=== PATIENT | male | born 1965 | race Caucasian/White ===

== ENCOUNTER 2024-06-25 18:00 | Emergency (ER) | payer OTHER, MEDICARE, SELFPAY ==
[2024-06-25 18:42] VITALS: BP 162/87; PULSE 93; RESP 18; TEMP 36.8; O2SAT 97; BMI 33.1
[2024-06-25 18:47] VITALS: BP 154/102; PULSE 98; O2SAT 100
--- NOTE | 2024-06-25 18:47 | XRR_ITS ---
PROCEDURE INFORMATION: Exam: XR Right Knee Exam date and time: 06/25/2024 6:59 PM Age: 59 years old Clinical indication: Pain; Knee; Right; Prior surgery; Surgery date: 6+ months; Surgery type: 2 scopes TECHNIQUE: Imaging protocol: Radiologic exam of the right knee. Views: 3 views. COMPARISON: No relevant prior studies available. FINDINGS: Bones/joints: Osseous structures are intact. Negative for fracture. Mild tricompartmental DJD of the knee. Joint effusion present. Soft tissues: Normal. XR/XR knee RT 3V* [id number] IMPRESSION: Mild tricompartmental DJD of the knee with joint effusion.
--- NOTE | 2024-06-25 19:25 | ED_ITS ---
HPI - Extremity Problem General: Chief complaint: Extremity Injury, Lower Stated complaint: Right knee pain Time Seen by Provider: 06/25/24 19:07 History of Present Illness: 59-year-old male patient comes in today with complaints of decreased mobility to the right knee. Patient has known significant arthritis to the knee. Patient reports that he has had some increasing discomfort due to a recent move. Patient appears nontoxic. Patient appears no acute distress. Related Data Allergies Allergy/AdvReac Type Severity Reaction Status Date / Time acetaminophen [From Tylenol] Allergy ALGY-Anaphy Verified 06/25/24 18:56 laxis adhesive Allergy Unknown Verified 06/25/24 18:56 aspirin Allergy ALGY-Anaphy Verified 06/25/24 18:56 laxis Corticosteroids Allergy Unknown Verified 06/25/24 18:56 (Glucocorticoids) doxepin Allergy Unknown Verified 06/25/24 18:56 doxycycline Allergy ALGY-Rash Verified 06/25/24 18:56 duloxetine [From Cymbalta] Allergy Unknown Verified 06/25/24 18:56 hydrocodone [From Vicodin] Allergy Unknown Verified 06/25/24 18:56 influenza A (H1N1) virus Allergy Unknown Verified 06/25/24 18:56 vaccine m-camille-split 2008 [From influenza A (H1N1)] latex Allergy ALGY-Rash Verified 06/25/24 18:56 lidocaine Allergy ALGY-Anaphy Verified 06/25/24 18:56 laxis memantine [From Namenda] Allergy Unknown Verified 06/25/24 18:56 mirtazapine Allergy Unknown Verified 06/25/24 18:56 montelukast [From Singulair] Allergy Unknown Verified 06/25/24 18:56 mushroom Allergy ALGY-Anaphy Verified 06/25/24 18:56 laxis NSAIDS (Non-Steroidal Allergy ALGY-Anaphy Verified 06/25/24 18:56 Anti-Inflamma laxis onabotulinumtoxinA Allergy Unknown Verified 06/25/24 18:56 [From Botox] onion Allergy ALGY-Anaphy Verified 06/25/24 18:56 laxis oxycodone [From Percocet] Allergy Unknown Verified 06/25/24 18:56 Penicillins Allergy ALGY-Anaphy Verified 06/25/24 18:56 laxis pregabalin [From Lyrica] Allergy Unknown Verified 06/25/24 18:56 quetiapine [From Seroquel] Allergy ALGY-Anaphy Verified 06/25/24 18:56 laxis red (food color) Allergy Unknown Verified 06/25/24 18:56 shellfish derived Allergy ALGY-Anaphy Verified 06/25/24 18:56 laxis sulfanilamide Allergy Unknown Verified 06/25/24 18:56 tizanidine Allergy Unknown Verified 06/25/24 18:56 tomato Allergy ALGY-Anaphy Verified 06/25/24 18:56 laxis topiramate [From Topamax] Allergy Unknown Verified 06/25/24 18:56 zonisamide Allergy Unknown Verified 06/25/24 18:56 Review of Systems General: Reports: 10 or more systems reviewed and unremarkable except in HPI and below Musc: Reports: joint pain Physical Exam Const: COMMON NORMALS: alert HENMT: COMMON NORMALS: normocephalic HEAD & SCALP: normocephalic Neck/C-Spine: COMMON NORMALS: full ROM Resp: COMMON NORMALS: normal respiratory effort Cardio: COMMON NORMALS: regular rate RATE: regular rate Back/Pelvis: COMMON NORMALS: thoracic and lumbar spine normal to inspection Extremity: RIGHT LOWER EXTREMITY: Yes knee joint (Joint line tenderness, mild swelling, no redness) Right knee: Yes inspection Neuro: SENSORIUM/ORIENTATION: Yes alert Skin: COMMON NORMALS: turgor normal GENERAL SKIN EXAM: turgor normal Course Vital Signs: Vital signs: Vital Signs Temperature 98.3 F 06/25/24 18:42 Pulse Rate 93 06/25/24 18:42 Respiratory Rate 18 06/25/24 18:42 Blood Pressure 162/87 06/25/24 18:42 Pulse Oximetry 97 06/25/24 18:42 Oxygen Delivery Me thod Room Air 06/25/24 18:42 MDM - Extremity (Nontraumatic) Medical Decision Making 59-year-old male patient comes in today with complaints of right knee discomfort. On exam patient has some mild swelling and tenderness to palpation. Some decreased range of motion due to swelling. Distal pulses and sensation are intact. Differential diagnosis includes but not limited to osteoarthritis of the knee, tendinitis of the knee, knee strain, meniscal injury. X-ray of knee shows significant degenerative joint disease. Reviewed x-ray and exam with patient with recommendations for treatment. Patient is limited due to multiple allergens to drugs. I recommended patient try some fish oil or glucosamine/chondroitin to see if that would help with his discomfort along with ice and heat. Patient was given elastic bandage support. XR interpretation done by ED provider, pending radiology final review Discharge Plan Discharge Patient Disposition: Home Clinical Impression: Osteoarthritis of right knee Qualifiers: Osteoarthritis type: unspecified Qualified Code(s): M17.11 - Unilateral primary osteoarthritis, right knee Condition: Stable Discharge Orders: Discharge ED (Routine); Ordered 06/25/24 Ordered By: Lalito Saravia Discharge Diet: Usual diet Discharge Activity: Increase activity as tolerated Patient Instructions: Osteoarthritis (ED) Activity Restrictions/Additional Instructions: Use ice and heat to help with pain. Use an elastic bandage or compression sleeve for comfort. You may try fish oil and glucosamine/chondroitin supplementation for arthritic pain. Follow-up with primary care for further instructions. Return to ED for new concerns. 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
[2024-06-25 20:08] VITALS: BP 142/89; PULSE 104; O2SAT 91
== END 2024-06-25 20:00 | disposition home or self-care (01) ==
PROVIDERS: Emergency Provider Nurse Practitioner Family
DX: M17.11 Unilateral primary osteoarthritis, right knee (principal)
CPT/HCPCS: 73562; 99283

== ENCOUNTER 2024-08-22 02:59 | Emergency (ER) | payer OTHER, MEDICARE, SELFPAY ==
[2024-08-22 03:13] VITALS: BP 158/84; PULSE 89; RESP 16; TEMP 36.5; O2SAT 95; BMI 32.3
--- NOTE | 2024-08-22 03:17 | XRR_ITS ---
PROCEDURE INFORMATION: Exam: XR Right Hip Exam date and time: 08/22/2024 3:39 AM Age: 59 years old Clinical indication: Right hip; Patient HX: C/O RT hip pain. No injury. TECHNIQUE: Imaging protocol: Radiologic exam of the right hip. Views: 1 view hip with pelvis when performed. COMPARISON: No relevant prior studies available. FINDINGS: Bones/joints: There is no acute fracture or dislocation. If symptoms persist, follow-up imaging in several days may be useful to exclude an occult or subtle fracture. Mild arthritic changes involve the right hip age. Soft tissues: No significant acute finding. XR/XR hip RT 2-3V wo/w pel* [id number] IMPRESSION: No acute fracture or dislocation.
--- NOTE | 2024-08-22 03:37 | W.ED.EXTPRO ---
HPI - Extremity Problem General: Chief complaint: Extremity Injury, Lower Stated complaint: Hip Pain Time Seen by Provider: 08/22/24 03:08 Source: patient Mode of arrival: ambulatory Limitations: no limitations History of Present Illness: 59-year-old male who states he has a history of arthritis along with chronic joint pain states he is put on his shoes 3 hours ago and felt a pop in his right hip been having pain in the right hip since then he is able ambulate with his cane rates his pain a 6 out of 10 currently is worse with movement Associated symptoms: Deny chest pain, fever(s) or rash Related Data Allergies Allergy/AdvReac Type Severity Reaction Status Date / Time acetaminophen [From Tylenol] Allergy ALGY-Anaphy Verified 06/25/24 18:56 laxis adhesive Allergy Unknown Verified 06/25/24 18:56 aspirin Allergy ALGY-Anaphy Verified 06/25/24 18:56 laxis Corticosteroids Allergy Unknown Verified 06/25/24 18:56 (Glucocorticoids) doxepin Allergy Unknown Verified 06/25/24 18:56 doxycycline Allergy ALGY-Rash Verified 06/25/24 18:56 duloxetine [From Cymbalta] Allergy Unknown Verified 06/25/24 18:56 hydrocodone [From Vicodin] Allergy Unknown Verified 06/25/24 18:56 influenza A (H1N1) virus Allergy Unknown Verified 06/25/24 18:56 vaccine m-camille-split 2008 [From influenza A (H1N1)] latex Allergy ALGY-Rash Verified 06/25/24 18:56 lidocaine Allergy ALGY-Anaphy Verified 06/25/24 18:56 laxis memantine [From Namenda] Allergy Unknown Verified 06/25/24 18:56 mirtazapine Allergy Unknown Verified 06/25/24 18:56 montelukast [From Singulair] Allergy Unknown Verified 06/25/24 18:56 mushroom Allergy ALGY-Anaphy Verified 06/25/24 18:56 laxis NSAIDS (Non-Steroidal Allergy ALGY-Anaphy Verified 06/25/24 18:56 Anti-Inflamma laxis onabotulinumtoxinA Allergy Unknown Verified 06/25/24 18:56 [From Botox] onion Allergy ALGY-Anaphy Verified 06/25/24 18:56 laxis oxycodone [From Percocet] Allergy Unknown Verified 06/25/24 18:56 Penicillins Allergy ALGY-Anaphy Verified 06/25/24 18:56 laxis pregabalin [From Lyrica] Allergy Unknown Verified 06/25/24 18:56 quetiapine [From Seroquel] Allergy ALGY-Anaphy Verified 06/25/24 18:56 laxis red (food color) Allergy Unknown Verified 06/25/24 18:56 shellfish derived Allergy ALGY-Anaphy Verified 06/25/24 18:56 laxis sulfanilamide Allergy Unknown Verified 06/25/24 18:56 tizanidine Allergy Unknown Verified 06/25/24 18:56 tomato Allergy ALGY-Anaphy Verified 06/25/24 18:56 laxis topiramate [From Topamax] Allergy Unknown Verified 06/25/24 18:56 zonisamide Allergy Unknown Verified 06/25/24 18:56 Review of Systems Const: Denies: fever(s), chills, body aches or change in appetite ENMT: Denies: throat pain or dental pain Card: Denies: chest pain Resp: Denies: dyspnea GI: Denies: abdominal pain, nausea, vomiting or diarrhea Musc: Reports: extremity pain; Denies: neck pain or back pain Skin/Breast: Denies: rash Neuro: Denies: headache(s) Physical Exam Const: COMMON NORMALS: no acute distress, patient oriented x3 and healthy appearing HENMT: COMMON NORMALS: normocephalic and atraumatic HEAD & SCALP: normocephalic and atraumatic Neck/C-Spine: COMMON NORMALS: full ROM and supple Chest: COMMONS NORMALS: normal inspection of the chest Resp: COMMON NORMALS: normal respiratory effort Cardio: COMMON NORMALS: regular rate RATE: regular rate Extremity: NARRATIVE EXTREMITY EXAM: Tenderness noted over right hip has some pain with range of motion he is able ambulate Neuro: COMMON NORMALS: patient oriented x3, moves all extremities and no focal motor deficits Psych: COMMON NORMALS: mental status grossly normal, Normal thought process present and cooperative THOUGHT PROCESS: Normal thought process present Skin: COMMON NORMALS: no rashes or lesions noted and no wounds GENERAL SKIN EXAM: no rashes or lesions noted Course Vital Signs: Vital signs: Vital Signs Temperature 97.7 F 08/22/24 03:13 Pulse Rate 89 08/22/24 03:13 Respiratory Rate 16 08/22/24 03:13 Blood Pressure 158/84 08/22/24 03:13 Pulse Oximetry 95 08/22/24 03:13 Oxygen Delivery Me thod Room Air 08/22/24 03:13 MDM - Extremity (Nontraumatic) Medical Decision Making Patient presents here with right hip pain x-ray shows no acute fracture he is able to ambulate he stable for discharge follow-up PCP return if worsening. Medical Records I reviewed the patient's medical records. XR interpretation done by ED provider, pending radiology final review ED provider radiology interpretation(s): xr hip: no acute fx Discharge Plan Discharge Patient Disposition: Home Clinical Impression: Acute right hip pain Condition: Stable Discharge Orders: Discharge ED (Routine); Ordered 08/22/24 Ordered By: Nino Rasheed Referrals: Ab Porras DO [Physician] - 4-7 days Discharge Diet: Advance as tolerated Discharge Activity: Resume usual activity Patient Instructions: Hip Pain (ED) Coding Level of Care Code ED Distilling Department Supervisor for Pierre Holley
[2024-08-22 04:04] VITALS: BP 156/78; PULSE 82; O2SAT 100
--- NOTE | 2024-08-23 08:49 | DCPLANNER ---
messaged ortho for er f/u
== END 2024-08-22 04:05 | disposition home or self-care (01) ==
PROVIDERS: Emergency Provider Emergency Medicine
DX: M25.551 Pain in right hip (principal)
CPT/HCPCS: 73502; 99283

== ENCOUNTER 2024-12-29 21:05 | Emergency (ER) | payer OTHER, MEDICARE, SELFPAY ==
--- NOTE | 2024-12-29 21:13 | ECG_ITS ---
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 Measurements Intervals [place] Rate: 106 P: 42 MI: 164 QRS: 1 QRSD: 94 T: 73 QT: 332 QTc: 441 Interpretive Statements SINUS TACHYCARDIA No previous ECG available for comparison Electronically Signed On 12-30-2024 17:34:42 CDT by Johann Celeste M.D. [id number]
[2024-12-29 21:17] VITALS: BP 140/74; PULSE 103; RESP 22; TEMP 37.1; O2SAT 98; BMI 32.3
--- NOTE | 2024-12-29 21:19 | XRR_ITS ---
PROCEDURE INFORMATION: Exam: XR Chest Exam date and time: 12/29/2024 9:39 PM Age: 59 years old Clinical indication: Shortness of breath TECHNIQUE: Imaging protocol: Radiologic exam of the chest. Views: 1 view. COMPARISON: No relevant prior studies available. FINDINGS: Lungs: Unremarkable. No consolidation. Pleural spaces: Unremarkable. No pleural effusion. No pneumothorax. Heart/Mediastinum: Unremarkable. No cardiomegaly. Bones/joints: Unremarkable. XR/XR chest 1V portable [id number] IMPRESSION: No acute findings.
--- NOTE | 2024-12-29 21:22 | ED_ITS ---
HPI - SOB/Dyspnea 2 General: Chief Complaint: Shortness of Breath/Dyspnea Stated Complaint: Coughing Can't breath Nausa,body ache Time Seen by Provider: 12/29/24 21:14 History of Present Illness: HPI Narrative: 59-year-old man with a history of asthma and apparently a chronic cough. He says he been coughing since October night. Almost 2 months ago. He feels somewhat short of breath. He says he has asthma. On exam he has a very mild wheeze. No chest pain. No nausea or vomiting. No fevers. Related Data Previous Rx's ?Medication ?Instructions ?Recorded benzonatate 200 mg capsule 200 mg PO TID PRN cough #30 caps 12/29/24 dexamethasone 6 mg tablet 6 mg PO DAILY 5 days #5 tabs 12/29/24 Allergies Allergy/AdvReac Type Severity Reaction Status Date / Time acetaminophen (From Tylenol) Allergy ALGY-Anaphy Verified 06/25/24 18:56 laxis adhesive Allergy Unknown Verified 06/25/24 18:56 aspirin Allergy ALGY-Anaphy Verified 06/25/24 18:56 laxis Corticosteroids Allergy Unknown Verified 06/25/24 18:56 (Glucocorticoids) doxepin Allergy Unknown Verified 06/25/24 18:56 doxycycline Allergy ALGY-Rash Verified 06/25/24 18:56 duloxetine (From Cymbalta) Allergy Unknown Verified 06/25/24 18:56 hydrocodone (From Vicodin) Allergy Unknown Verified 06/25/24 18:56 influenza A (H1N1) virus Allergy Unknown Verified 06/25/24 18:56 vaccine m-camille-split 2008 (From influenza A (H1N1)) latex Allergy ALGY-Rash Verified 06/25/24 18:56 lidocaine Allergy ALGY-Anaphy Verified 06/25/24 18:56 laxis memantine (From Namenda) Allergy Unknown Verified 06/25/24 18:56 mirtazapine Allergy Unknown Verified 06/25/24 18:56 montelukast (From Singulair) Allergy Unknown Verified 06/25/24 18:56 mushroom Allergy ALGY-Anaphy Verified 06/25/24 18:56 laxis NSAIDS (Non-Steroidal Allergy ALGY-Anaphy Verified 06/25/24 18:56 Anti-Inflamma laxis onabotulinumtoxinA (From Allergy Unknown Verified 06/25/24 18:56 Botox) onion Allergy ALGY-Anaphy Verified 06/25/24 18:56 laxis oxycodone (From Percocet) Allergy Unknown Verified 06/25/24 18:56 Penicillins Allergy ALGY-Anaphy Verified 06/25/24 18:56 laxis pregabalin (From Lyrica) Allergy Unknown Verified 06/25/24 18:56 quetiapine (From Seroquel) Allergy ALGY-Anaphy Verified 06/25/24 18:56 laxis red (food color) Allergy Unknown Verified 06/25/24 18:56 shellfish derived Allergy ALGY-Anaphy Verified 06/25/24 18:56 laxis sulfanilamide Allergy Unknown Verified 06/25/24 18:56 tizanidine Allergy Unknown Verified 06/25/24 18:56 tomato Allergy ALGY-Anaphy Verified 06/25/24 18:56 laxis topiramate (From Topamax) Allergy Unknown Verified 06/25/24 18:56 zonisamide Allergy Unknown Verified 06/25/24 18:56 Review of Systems 2 Narrative: Constitutional symptoms: Negative except as documented in HPI. Skin symptoms: Negative except as documented in HPI. Eye symptoms: Negative except as documented in HPI. ENMT symptoms: Negative except as documented in HPI. Respiratory symptoms: Negative except as documented in HPI. Cardiovascular symptoms: Negative except as documented in HPI. Gastrointestinal symptoms: Negative except as documented in HPI. Genitourinary symptoms: Negative except as documented in HPI. Musculoskeletal symptoms: Negative except as documented in HPI. Neurologic symptoms: Negative except as documented in HPI. Psychiatric symptoms: Negative except as documented in HPI. Endocrine symptoms: Negative except as documented in HPI. Physical Exam 2 Narrative: EXAM NARRATIVE: General: Alert, no acute distress. Skin: Warm, dry. Head: Normocephalic, atraumatic. Neck: Supple, trachea midline. Eye: Extraocular movements are intact. Ears, nose, mouth and throat: Oral mucosa moist. Cardiovascular: Regular rate and rhythm, Normal peripheral perfusion. Respiratory: some expiratory wheeze, mild increased wob, breath sounds are equal, Symmetrical chest wall expansion. Gastrointestinal: Soft, Nontender, Non distended, Normal bowel sounds. Musculoskeletal: Normal ROM, no deformity. Neurological: Alert and oriented, No focal neurological deficit observed. Psychiatric: Cooperative, appropriate mood & affect. Course 2 Vital Signs: Vital signs: Vital Signs Temperature 98.7 F 12/29/24 21:17 Pulse Rate 101 H 12/29/24 22:30 Respiratory Rate 20 H 12/29/24 22:23 Blood Pressure 129/75 12/29/24 22:30 Pulse Oximetry 96 12/29/24 22:30 Oxygen Delivery Me thod Room Air 12/29/24 22:30 MDM - SOB/Dyspnea Medical Decision Making Differential diagnosis for patient with shortness of breath includes but is not limited to and based on the above HPI, review of systems and physical exam: Pneumonia. Bronchitis. Asthma or COPD with acute exacerbation. Acute coronary syndrome / ME. Pulmonary embolism. Anxiety. Congestive heart failure. Viral infections including influenza and Covid-19. Atrial fibrillation. Anxiety. Pleural effusion. Pneumothorax. Orders placed to evaluate differential diagnosis based on the above differential, HPI and physical exam EKG: Time 2112. Rate 106. Sinus tachycardia. No ST-T changes, no ectopy, normal AR & QRS intervals, This was reviewed and interpreted by myself the ER physician at 2114. Chest x-ray: No acute process. No infiltrate. No pneumothorax. This was reviewed and interpreted by myself the emergency room physician. I also reviewed the radiology report. Lab Review: Laboratory results were reviewed and interpreted by myself the emergency room physician. No leukocytosis. No anemia. No renal failure. Patient is influenza A positive. I reviewed the patient's medical record. Reexamination: Patient remained stable. No increased work of breathing. No altered mental status. No focal motor deficits. Assessment and plan: Influenza A Asthma exacerbation ? IV Decadron in the emergency room - Discharged home - Discussed plan with patient. Answered any questions. - Evaluation and treatment of this problem were appropriate in the emergency setting. Lab Data 12/29/24 22:10 12/29/24 22:10 Labs/Radiology: Radiology Impressions Chest X-Ray 12/29/24 21:19 IMPRESSION: No acute findings. Laboratory Results WBC 7.87 10^3/uL (3.29-11.43) 12/29/24 22:10 RBC 4.70 10^6/uL (3.85-5.65) 12/29/24 22:10 Hgb 13.80 g/dL (11.27-16.99) 12/29/24 22:10 Hct 39.7 % (37-53) 12/29/24 22:10 MCV 84.5 fl (82-101) 12/29/24 22:10 MCH 29.4 pg (27-33) 12/29/24 22:10 MCHC 34.8 g/dL (30-55) 12/29/24 22:10 RDW 12.0 % (12.1-15.1) L 12/29/24 22:10 Plt Count 286 10^3/cmm (157-399) 12/29/24 22:10 MPV 9.6 fL (7.4-10.4) 12/29/24 22:10 Neut % (Auto) 67.0 % 12/29/24 22:10 Lymph % (Auto) 12.3 % 12/29/24 22:10 Barren % (Auto) 16.4 % 12/29/24 22:10 Eos % (Auto) 3.2 % 12/29/24 22:10 Baso % (Auto) 0.8 % 12/29/24 22:10 Neut # (Auto) 5.28 10^3/uL (1.8-7.7) 12/29/24 22:10 Lymph # (Auto) 1.0 10^3/uL (0.8-4.8) 12/29/24 22:10 Barren # (Auto) 1.3 10^3/uL (0.2-0.9) H 12/29/24 22:10 Eos # (Auto) 0.3 10^3/uL (0.0-0.8) 12/29/24 22:10 Baso # (Auto) 0.1 10^3/uL (0.0-0.1) 12/29/24 22:10 Nucleated RBC % (auto) 0 % 12/29/24 22:10 Nucleated RBCs # 0.0 /100WBC 12/29/24 22:10 Sodium 139 mmol/L (136-145) 12/29/24 22:10 Potassium 4.3 mmol/L (3.5-5.1) 12/29/24 22:10 Chloride 103 mmol/L (98-107) 12/29/24 22:10 Carbon Dioxide 22 mmol/L (22-29) 12/29/24 22:10 Anion Gap 18.3 (5-19) 12/29/24 22:10 BUN 8 mg/dL (6-20) 12/29/24 22:10 Creatinine 1.2 mg/dL (0.7-1.2) 12/29/24 22:10 GFR Calculation 62.0 mL/min (90-130) L 12/29/24 22:10 Glucose 98 mg/dL (65-115) 12/29/24 22:10 Calculated Osmolality 286 mOsm/kg (285-295) 12/29/24 22:10 Calcium 8.9 mg/dL (8.5-10.5) 12/29/24 22:10 Total Bilirubin 0.7 mg/dL (0.15-1.2) 12/29/24 22:10 AST 33 U/L (0-40) 12/29/24 22:10 ALT 28 U/L (0-41) 12/29/24 22:10 Alkaline Phosphatase 95 U/L (40-130) 12/29/24 22:10 Total Protein 6.8 g/dL (6.6-8.7) 12/29/24 22:10 Albumin 4.3 g/dL (3.5-5.2) 12/29/24 22:10 Globulin 2.5 g/dL (1.3-4.6) 12/29/24 22:10 Influenza A (PCR) Positive (Negative) 12/29/24 21:39 Influenza Type B (PCR) Negative (Negative) 12/29/24 21:39 RSV (PCR) Negative (Negative) 12/29/24 21:39 SARS-CoV-2 (PCR) Negative (Negative) 12/29/24 21:39 All radiology interpretation(s) finalized by discharge Discharge Plan Discharge Patient Disposition: Home Clinical Impression: Influenza A, Asthma with exacerbation Condition: Stable Prescriptions: New benzonatate 200 mg capsule 200 mg PO TID PRN (Reason: cough) Qty: 30 0RF dexamethasone 6 mg tablet 6 mg PO DAILY 5 Days Qty: 5 0RF Discharge Orders: Discharge ED (Routine); Ordered 12/29/24 Ordered By: Tori Brown Discharge Diet: Usual diet Patient Instructions: Influenza (ED), Opioid Safety, Pain Management Activity Restrictions/Additional Instructions: Thank you for choosing [facility] for your healthcare needs today. Please realize this is an emergency room and that we are providing you with a medical screening exam and this may not be complete and all inclusive of all the testing and or work up that you may need to determine your ailment or severity of your illness. You have been screened and evaluated and felt safe for discharge. Health conditions do change or evolve sometimes and as such it is important that you follow up with your Primary Doctor to be re checked, 3-5 days is a general good time frame for follow up. You are always welcome to return to the ED for re assessment if your symptoms are worsening or you have new concerns Print Language: Honduran Coding Level of Care Code ED Trip Motor Operator for Pierre Holley
[2024-12-29] MEDS: guaiFENesin-codeine UDC 10 mL PO (21:59)
[2024-12-29] MEDS: dexamethasone 10 mg/mL INJ IVP (21:59)
[2024-12-29] MEDS: levofloxacin-dextrose 5 % 750 MG/150 ML PREMIX 100 MG IV (22:05)
[2024-12-29 22:08] VITALS: BP 123/78; PULSE 99; O2SAT 98
[2024-12-29 22:13] LABS: Basophils # 0.1 10^3/uL (0.0-0.1); Basophils % 0.8 %; Eosinophils # 0.3 10^3/uL (0.0-0.8); Eosinophils % 3.2 %; Hematocrit 39.7 % (37-53); Lymphocytes % 12.3 %; Mean Corpuscular HGB Conc 34.8 g/dL (30-55); Mean Corpuscular Hemoglobin 29.4 pg (27-33); Mean Corpuscular Volume 84.5 fl (82-101); Mean Platelet Volume 9.6 fL (7.4-10.4); Monocytes # 1.3 10^3/uL (0.2-0.9); Monocytes % 16.4 %; Neutrophils # 5.28 10^3/uL (1.8-7.7); Nucleated Red Blood Cells % 0 %; Platelet Count 286 10^3/cmm (157-399); White Blood Count 7.87 10^3/uL (3.29-11.43)
[2024-12-29] MEDS: albuterol 2.5 mg/3 mL Neb INHALATION (22:22)
[2024-12-29 22:23] VITALS: PULSE 95; RESP 20; O2SAT 95
[2024-12-29 22:24] LABS: Influenza A POSITIVE (Negative); Influenza B NEGATIVE (Negative); Respiratory Syncytial Virus Ce NEGATIVE (Negative); SARS-CoV-2 PCR NEGATIVE (Negative)
[2024-12-29 22:30] VITALS: BP 129/75; PULSE 101; O2SAT 96
[2024-12-29 22:39] LABS: Alanine Aminotransferase 28 U/L (0-41); Albumin Level 4.3 g/dL (3.5-5.2); Alkaline Phosphatase 95 U/L (40-130); Anion Gap 18.3 (5-19); Aspartate Amino Transferase 33 U/L (0-40); Blood Urea Nitrogen 8 mg/dL (6-20); Calcium 8.9 mg/dL (8.5-10.5); Carbon Dioxide 22 mmol/L (22-29); Chloride 103 mmol/L (98-107); Creatinine Clr Calc Pharmacy 72.9015; Globulin 2.5 g/dL (1.3-4.6); Glucose 98 mg/dL (65-115); Osmolality Calculated 286 mOsm/kg (285-295); Potassium 4.3 mmol/L (3.5-5.1); Sodium 139 mmol/L (136-145); Total Bilirubin 0.7 mg/dL (0.15-1.2); Total Protein 6.8 g/dL (6.6-8.7)
[2024-12-29 23:56] VITALS: BP 123/71; PULSE 94; O2SAT 96
== END 2024-12-29 23:57 | disposition home or self-care (01) ==
PROVIDERS: Emergency Provider Emergency Medicine
DX: J10.1 Influenza due to other identified influenza virus with other respiratory manifestations (principal); J45.901 Unspecified asthma with (acute) exacerbation; Z11.52 Encounter for screening for COVID-19
CPT/HCPCS: 71045; 80053; 85025; 87637; 93005; 94640; 96365; 96366; 96375; 99285; J1100; J1956; J7613; J9999

== ENCOUNTER 2025-01-10 15:16 | Emergency (ER) | payer OTHER, MEDICARE, SELFPAY ==
[2025-01-10] VITALS (9 sets, daily range): BP systolic 114–171; BP diastolic 70–94; PULSE 61–116; RESP 20–24; TEMP 36.8; O2SAT 89–96
--- NOTE | 2025-01-10 15:22 | XRR_ITS ---
PROCEDURE INFORMATION: Exam: XR Chest Exam date and time: 01/10/2025 3:28 PM Age: 59 years old Clinical indication: Cough and dyspnea and shortness of breath; Additional info: Dyspnea/cough TECHNIQUE: Imaging protocol: Radiologic exam of the chest. Views: 1 view. COMPARISON: CR (CHEST, ) 12/29/2024 9:39 PM FINDINGS: Lungs: No focal consolidation. Pleural spaces: No evidence of pneumothorax. No evidence of pleural effusion. Heart/Mediastinum: Cardiomediastinal silhouette is within normal limits. Bones/joints: No evidence of acute osseous abnormality. XR/XR chest 1V portable [id number] IMPRESSION: 1. No acute cardiopulmonary abnormality.
--- NOTE | 2025-01-10 15:24 | W.ED.SOB ---
HPI - SOB/Dyspnea General: Chief Complaint: Upper Respiratory Infection Stated Complaint: cough, SOB Time Seen by Provider: 01/10/25 15:21 History of Present Illness: HPI Narrative: 59-year-old male presents emergency room plaints of chronic cough he is tachypneic when he first arrived but maintaining his sats normally nonproductive cough. He was seen On 12/29 in the emergency room and had influenza at that time. Cough has been nonproductive. He does have a albuterol uses at home is some mild relief. Denies any hemoptysis chest discomfort with coughing and movement but otherwise not having any. No history of PE. Patient does smoke. Associated symptoms: Deny abdominal pain, chest pain or fever(s) Related Data Home Medications ?Medication ?Instructions ?Recorded ?Confirmed cromolyn 20 mg/2 mL solution for 2 ml inhalation QID 01/10/25 01/10/25 nebulization famotidine 20 mg tablet 20 mg PO DAILY 01/10/25 01/10/25 hydroxyzine pamoate 50 mg capsule 50 mg PO TID 01/10/25 01/10/25 Previous Rx's ?Medication ?Instructions ?Recorded albuterol sulfate 90 mcg/actuation 2 inh inhalation Q4H PRN shortness 01/10/25 aerosol inhaler of breath or wheezing #18 grams tiotropium bromide 1.25 2 inh inhalation DAILY #4 grams 01/10/25 mcg/actuation mist for inhalation (Spiriva Respimat) Allergies Allergy/AdvReac Type Severity Reaction Status Date / Time acetaminophen (From Tylenol) Allergy ALGY-Anaphy Verified 01/10/25 15:24 laxis adhesive Allergy Unknown Verified 01/10/25 15:24 aspirin Allergy ALGY-Anaphy Verified 01/10/25 15:24 laxis Corticosteroids Allergy Unknown Verified 01/10/25 15:24 (Glucocorticoids) doxepin Allergy Unknown Verified 01/10/25 15:24 doxycycline Allergy ALGY-Rash Verified 01/10/25 15:24 duloxetine (From Cymbalta) Allergy Unknown Verified 01/10/25 15:24 hydrocodone (From Vicodin) Allergy Unknown Verified 01/10/25 15:24 influenza A (H1N1) virus Allergy Unknown Verified 01/10/25 15:24 vaccine m-camille-split 2008 (From influenza A (H1N1)) latex Allergy ALGY-Rash Verified 01/10/25 15:24 lidocaine Allergy ALGY-Anaphy Verified 01/10/25 15:24 laxis memantine (From Namenda) Allergy Unknown Verified 01/10/25 15:24 mirtazapine Allergy Unknown Verified 01/10/25 15:24 montelukast (From Singulair) Allergy Unknown Verified 01/10/25 15:24 mushroom Allergy ALGY-Anaphy Verified 01/10/25 15:24 laxis NSAIDS (Non-Steroidal Allergy ALGY-Anaphy Verified 01/10/25 15:24 Anti-Inflamma laxis onabotulinumtoxinA (From Allergy Unknown Verified 01/10/25 15:24 Botox) onion Allergy ALGY-Anaphy Verified 01/10/25 15:24 laxis oxycodone (From Percocet) Allergy Unknown Verified 01/10/25 15:24 Penicillins Allergy ALGY-Anaphy Verified 01/10/25 15:24 laxis pregabalin (From Lyrica) Allergy Unknown Verified 01/10/25 15:24 quetiapine (From Seroquel) Allergy ALGY-Anaphy Verified 01/10/25 15:24 laxis red (food color) Allergy Unknown Verified 01/10/25 15:24 shellfish derived Allergy ALGY-Anaphy Verified 01/10/25 15:24 laxis sulfanilamide Allergy Unknown Verified 01/10/25 15:24 tizanidine Allergy Unknown Verified 01/10/25 15:24 tomato Allergy ALGY-Anaphy Verified 01/10/25 15:24 laxis topiramate (From Topamax) Allergy Unknown Verified 01/10/25 15:24 zonisamide Allergy Unknown Verified 01/10/25 15:24 Review of Systems Const: Denies: fever(s) or chills Card: Denies: chest pain Resp: Reports: dyspnea, non-productive cough and wheezing GI: Denies: abdominal pain : Denies: dysuria, urinary frequency or urinary urgency Musc: Denies: neck pain or back pain Skin/Breast: Denies: rash Physical Exam Const: GENERAL APPEARANCE: cooperative ORIENTATION/CONSCIOUSNESS: Yes awake, Yes oriented to person, Yes oriented to place and Yes oriented to time HENMT: COMMON NORMALS: normocephalic, atraumatic and hearing grossly normal bilaterally HEAD & SCALP: normocephalic and atraumatic Resp: COMMON NORMALS: normal respiratory effort, No retractions, No use of accessory muscles and clear to auscultation bilaterally AUSCULTATION: clear to auscultation bilaterally Cardio: COMMON NORMALS: regular rate, regular rhythm and No murmurs present (Cardio) RATE: regular rate RHYTHM: regular rhythm GI: COMMON NORMALS: Soft to palpation and No hepatosplenomegaly present AUSCULTATION: Yes normoactive bowel sounds PALPATION: Yes Soft to palpation, No Tenderness to palpation present (GI), No Guarding due to palpation present (GI) and Yes No hepatosplenomegaly present Extremity: COMMON NORMALS: normal to inspection, capillary refill normal, no clubbing, cyanosis or edema, no calf tenderness and no pedal edema Neuro: SENSORIUM/ORIENTATION: Yes oriented to person, Yes oriented to place and Yes oriented to time Skin: COMMON NORMALS: no rashes or lesions noted GENERAL SKIN EXAM: no rashes or lesions noted Course Vital Signs: Vital signs: Vital Signs Temperature 98.2 F 01/10/25 15:19 Pulse Rate 100 01/10/25 18:37 Respiratory Rate 22 H 01/10/25 18:08 Blood Pressure 126/84 01/10/25 18:37 Pulse Oximetry 92 01/10/25 18:37 Oxygen Delivery Me thod Room Air 01/10/25 18:08 MDM - SOB/Dyspnea Medical Decision Making Interestingly he still test positive for influenza. He has paroxysmal coughing the patient had felt improvement with a nebulizer. He declines glucocorticoids as he has anaphylactic reaction to them. Patient has extensive allergy list which makes treatment difficult. Continue the albuterol add Spiriva Respimat 1 puff twice daily. Suspect he has postinfectious bronchospasm. CT chest x-ray and CTA chest unremarkable. Medical Records I reviewed the patient's medical records. Lab Data I reviewed the patient's lab results. 01/10/25 15:36 01/10/25 15:36 Labs/Radiology: Radiology Impressions Chest X-Ray 01/10/25 15:22 IMPRESSION: 1. No acute cardiopulmonary abnormality. Chest CTA 01/10/25 16:53 IMPRESSION: 1. No evidence of PE or acute aortic abnormality. Laboratory Results WBC 14.00 10^3/uL (3.29-11.43) H 01/10/25 15:36 RBC 5.20 10^6/uL (3.85-5.65) 01/10/25 15:36 Hgb 15.10 g/dL (11.27-16.99) 01/10/25 15:36 Hct 43.3 % (37-53) 01/10/25 15:36 MCV 83.3 fl (82-101) 01/10/25 15:36 MCH 29.0 pg (27-33) 01/10/25 15:36 MCHC 34.9 g/dL (30-55) 01/10/25 15:36 RDW 12.0 % (12.1-15.1) L 01/10/25 15:36 Plt Count 323 10^3/cmm (157-399) 01/10/25 15:36 MPV 9.7 fL (7.4-10.4) 01/10/25 15:36 Neut % (Auto) 65.8 % 01/10/25 15:36 Lymph % (Auto) 20.1 % 01/10/25 15:36 [place] % (Auto) 10.9 % 01/10/25 15:36 Eos % (Auto) 1.4 % 01/10/25 15:36 Baso % (Auto) 0.4 % 01/10/25 15:36 Neut # (Auto) 9.23 10^3/uL (1.8-7.7) H 01/10/25 15:36 Lymph # (Auto) 2.8 10^3/uL (0.8-4.8) 01/10/25 15:36 [place] # (Auto) 1.5 10^3/uL (0.2-0.9) H 01/10/25 15:36 Eos # (Auto) 0.2 10^3/uL (0.0-0.8) 01/10/25 15:36 Baso # (Auto) 0.1 10^3/uL (0.0-0.1) 01/10/25 15:36 Nucleated RBC % (auto) 0 % 01/10/25 15:36 Nucleated RBCs # 0.0 /100WBC 01/10/25 15:36 Specimen Type Arterial 01/10/25 16:06 Sample Site Brachial, left 01/10/25 16:06 ABG pH 7.57 (7.35-7.45) H* 01/10/25 16:06 ABG pCO2 22.5 mmHg (35-45) L 01/10/25 16:06 ABG pO2 87.5 mmHg (80.0-100.0) 01/10/25 16:06 ABG PO2/FiO2 Ratio 416 01/10/25 16:06 ABG HCO3 20.8 mmol/L (22-26) L 01/10/25 16:06 ABG O2 Saturation 98.5 01/10/25 16:06 ABG Base Excess 0.8 mmol/L (-2.0-2.0) 01/10/25 16:06 Dion Test N/a 01/10/25 16:06 A-a O2 Gradient 4.2 mmHg (5-10) L 01/10/25 16:06 Hematocrit 45.4 % (42-52) 01/10/25 16:06 Hgb O2 Saturation 97.5 % (95-100) 01/10/25 16:06 Carboxyhemoglobin 1.0 %THgb (0.4-20.1) 01/10/25 16:06 Methemoglobin 0.1 % (0.4-1.5) L 01/10/25 16:06 Total Hemoglobin 14.8 g/dL (14-18) 01/10/25 16:06 Sodium 137.0 mmol/L (131-143) 01/10/25 16:06 Potassium 3.0 mmol/L (3.5-5.0) L 01/10/25 16:06 Glucose 172.0 mg/dL (70-115) H 01/10/25 16:06 Ionized Calcium 1.2 mmol/L (1.1-1.4) 01/10/25 16:06 O2 Delivery Device Room air 01/10/25 16:06 FiO2 21.0 % 01/10/25 16:06 Sloop Captain ID Amh 01/10/25 16:06 Sodium 136 mmol/L (136-145) 01/10/25 15:36 Potassium 3.2 mmol/L (3.5-5.1) L 01/10/25 15:36 Chloride 100 mmol/L (98-107) 01/10/25 15:36 Carbon Dioxide 19 mmol/L (22-29) L 01/10/25 15:36 Anion Gap 20.2 (5-19) H 01/10/25 15:36 BUN 8 mg/dL (6-20) 01/10/25 15:36 Creatinine 1.2 mg/dL (0.7-1.2) 01/10/25 15:36 GFR Calculation 62.0 mL/min (90-130) L 01/10/25 15:36 Glucose 164 mg/dL (65-115) H 01/10/25 15:36 Calculated Osmolality 284 mOsm/kg (285-295) L 01/10/25 15:36 Calcium 9.1 mg/dL (8.5-10.5) 01/10/25 15:36 Total Bilirubin 0.9 mg/dL (0.15-1.2) 01/10/25 15:36 AST 30 U/L (0-40) 01/10/25 15:36 ALT 46 U/L (0-41) H 01/10/25 15:36 Alkaline Phosphatase 154 U/L (40-130) H 01/10/25 15:36 Total Protein 7.4 g/dL (6.6-8.7) 01/10/25 15:36 Albumin 3.8 g/dL (3.5-5.2) 01/10/25 15:36 Globulin 3.6 g/dL (1.3-4.6) 01/10/25 15:36 Influenza A (PCR) Positive (Negative) 01/10/25 15:45 Influenza Type B (PCR) Negative (Negative) 01/10/25 15:45 RSV (PCR) Negative (Negative) 01/10/25 15:45 SARS-CoV-2 (PCR) Negative (Negative) 01/10/25 15:45 All radiology interpretation(s) finalized by discharge EKG Data EKG 1: Interpretation: Sinus tachycardia with a rate of [address] changes. NE interval 157 QT normal. Discharge Plan Discharge Patient Disposition: Home Clinical Impression: Post-infection bronchospasm Condition: Stable Prescriptions: New Spiriva Respimat 1.25 mcg/actuation mist 2 inh inhalation DAILY Qty: 4 0RF albuterol sulfate 90 mcg/actuation HFA aerosol inhaler 2 inh INHALATION Q4H PRN (Reason: shortness of breath or wheezing) Qty: 18 0RF No Action cromolyn 20 mg/2 mL Solution For Nebulization 2 ml INHALATION QID hydroxyzine pamoate 50 mg Capsule 50 mg PO TID famotidine 20 mg Tablet 20 mg PO DAILY Discharge Orders: Discharge ED (Routine); Ordered 01/10/25 Ordered By: Patricio Pollack Discharge Diet: Usual diet Discharge Activity: Increase activity as tolerated Patient Instructions: Opioid Safety, Pain Management Activity Restrictions/Additional Instructions: Thank you for choosing [facility] for your healthcare needs today. It is very important that you follow up as instructed or that you return to the Emergency Department should you have concerns or if your condition changes or worsens in any way. 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
--- NOTE | 2025-01-10 15:27 | ECG_ITS ---
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 Measurements Intervals [place] Rate: 108 P: 28 VT: 157 QRS: -28 QRSD: 82 T: 53 QT: 322 QTc: 433 Interpretive Statements SINUS TACHYCARDIA BORDERLINE LEFT AXIS DEVIATION [QRS AXIS < -20] MODERATE ST DEPRESSION [0.05+ mV ST DEPRESSION] Compared to ECG 12/29/2024 21:13:20 ST (T wave) deviation now present Electronically Signed On 01-10-2025 21:36:54 CDT by Kwadwo Melendez M.D. [email or web address] [id number]
[2025-01-10 15:47] LABS: Basophils # 0.1 10^3/uL (0.0-0.1); Basophils % 0.4 %; Eosinophils # 0.2 10^3/uL (0.0-0.8); Eosinophils % 1.4 %; Hematocrit 43.3 % (37-53); Lymphocytes # 2.8 10^3/uL (0.8-4.8); Lymphocytes % 20.1 %; Mean Corpuscular HGB Conc 34.9 g/dL (30-55); Mean Corpuscular Volume 83.3 fl (82-101); Mean Platelet Volume 9.7 fL (7.4-10.4); Monocytes # 1.5 10^3/uL (0.2-0.9); Monocytes % 10.9 %; Neutrophils # 9.23 10^3/uL (1.8-7.7); Neutrophils % 65.8 %; Nucleated Red Blood Cells % 0 %; Platelet Count 323 10^3/cmm (157-399)
[2025-01-10] MEDS: ipratropium-albuterol 3 mL Neb INHALATION (16:04)
[2025-01-10 16:08] LABS: Alanine Aminotransferase 46 U/L (0-41); Albumin Level 3.8 g/dL (3.5-5.2); Alkaline Phosphatase 154 U/L (40-130); Anion Gap 20.2 (5-19); Aspartate Amino Transferase 30 U/L (0-40); Blood Urea Nitrogen 8 mg/dL (6-20); Calcium 9.1 mg/dL (8.5-10.5); Carbon Dioxide 19 mmol/L (22-29); Chloride 100 mmol/L (98-107); Creatinine Clr Calc Pharmacy 71.2005; Globulin 3.6 g/dL (1.3-4.6); Glucose 164 mg/dL (65-115); Osmolality Calculated 284 mOsm/kg (285-295); Potassium 3.2 mmol/L (3.5-5.1); Sodium 136 mmol/L (136-145); Total Bilirubin 0.9 mg/dL (0.15-1.2); Total Protein 7.4 g/dL (6.6-8.7)
[2025-01-10 16:17] LABS: ABG PCO2 22.5 mmHg (35-45); Alveolar-Arterial Oxygen Gradi 4.2 mmHg (5-10); Arterial Blood Gas Hematocrit 45.4 % (42-52); Base Excess ABG 0.8 mmol/L (-2.0-2.0); Blood Gas Operator Identificat AMH; Blood Gas Sample Site Brachial, left; Blood Gas Sample Type Arterial; HCO3 ABG 20.8 mmol/L (22-26); HGB O2 Sat 97.5 % (95-100); Ionized Calcium Level - ABG 1.2 mmol/L (1.1-1.4); Methemoglobin 0.1 % (0.4-1.5); Oxygen Device ROOM AIR; Oxygen Saturation ABG 98.5; PO2 ABG 87.5 mmHg (80.0-100.0); PO2 FiO2 Ratio Arterial Blood 416; Total Hemoglobin 14.8 g/dL (14-18)
--- NOTE | 2025-01-10 16:18 | PC.PHAR ---
Patient states he takes the Drugs I listed that he is taking. [facility] for a current Med List.
[2025-01-10 16:49] LABS: ABG PH Result 7.57 (7.35-7.45)
[2025-01-10 16:52] LABS: Influenza A POSITIVE (Negative); Influenza B NEGATIVE (Negative); Respiratory Syncytial Virus Ce NEGATIVE (Negative); SARS-CoV-2 PCR NEGATIVE (Negative)
--- NOTE | 2025-01-10 16:53 | CTR_ITS ---
PROCEDURE INFORMATION: Exam: CTA Chest With Contrast Exam date and time: 01/10/2025 5:35 PM Age: 59 years old Clinical indication: Persistent cough since oct TECHNIQUE: Imaging protocol: Computed tomographic angiography of the chest with contrast. Exam focused on the arteries. 3D rendering (Not supervised by radiologist): MIP and/or 3D reconstructed images were created by the technologist. Radiation optimization: All CT scans at this facility use at least one of these dose optimization techniques: automated exposure control; mA and/or kV adjustment per patient size (includes targeted exams where dose is matched to clinical indication); or iterative reconstruction. Contrast material: OMNIPAQUE 350; Contrast volume: 100 ml; Contrast route: INTRAVENOUS (IV); COMPARISON: CR XR chest 1V portable [id number] 01/10/2025 3:28 PM RADIATION DOSE METRICS: Total DLP (mGy-cm): 448.61 FINDINGS: Pulmonary arteries: No evidence of pulmonary thromboembolism. Aorta: No evidence of aneurysmal dilatation or dissection of the thoracic aorta. Thyroid: Grossly unremarkable. Lungs: No focal consolidation. There is subsegmental atelectasis and mosaic attenuation in both lungs secondary to the expiratory phase of respiration. Peripheral opacities most suggestive of atelectasis. Pleural spaces: No evidence of pleural effusion. No pneumothorax. Heart: No cardiomegaly. No pericardial effusion. Mediastinal space: No evidence of mediastinal mass, fluid collection or hematoma. Lymph nodes: No mediastinal or hilar adenopathy. Bones/joints: No evidence of acute fracture or aggressive osseous lesion. Soft tissues: No evidence of fluid collection or hematoma in the superficial soft tissues. Other findings: No evidence of acute abnormality in the upper abdomen. CT/CT angio chest PE protcl [id number] IMPRESSION: 1. No evidence of PE or acute aortic abnormality.
[2025-01-10] MEDS: iohexol 350 mg/mL 500 mL Btl (per mL) IV (17:42)
== END 2025-01-10 18:38 | disposition home or self-care (01) ==
PROVIDERS: Emergency Provider Family Medicine
DX: J98.01 Acute bronchospasm (principal); Z11.52 Encounter for screening for COVID-19
CPT/HCPCS: 36415; 36600; 71045; 71275; 80051; 80053; 82330; 82805; 85025; 87637; 93005; 94640; 99285; J9999

== ENCOUNTER 2025-04-26 13:30 | Emergency (ER) | payer OTHER, SELFPAY ==
--- OUTSIDE RECORDS SUMMARY | 2015-06-22 04:43 | XMS_ITS | Continuity of Care Document ---
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 Role Phone Cooper Rivas MD Unavailable Unavailab le Allergies, Adverse Reactions, Alerts Substance Reaction Status Criticality Corticosteroids (Glucocorticoids) Active No Information VENLAFAXINE HCL Active No Informati on niacinamide Active No Information CERAMIDE COMBINATION NO.1 (1,3,6-II) Acti ve No Information STEARYL ALCOHOL Active No Informati on sodium lauryl sulfate Active No Inf ormation soap Active No Information SKIN CLEANSER Active No Information propylene glycol Active No Informat ion paraben Active No Information octocrylene Active No Information CETYL ALCOHOL Active No Information avobenzone Active No Information PERFUME HT52 Active No Information topiramate Active No Information NSAIDS (Non-Steroidal Anti-Inflammatory Drug) Active No Information Medications Medication Instructions Dosage Effective Dates (start - stop) Status Comments morphine concentrate 20 mg/mL oral syringe take 1 milliliter by oral route every 4 hours as needed - Active Medtronic intrathecal pump MS 20mg/ml dose per day 8mg 20cc pump Robaxin 500 mg tablet 1 po q 8 hours - Active Morphine Sulfate IR 15 mg ORAL TABLET 1 po q 6 hours as needed - Active morphine 30 mg tablet take 1 tablet by oral route every 6 hours as needed 30 MG - Active for break throug h pain Procedures Procedure Date Elec Spinal Pump Refill Anlys, Phys Drugs unclassified injection Drugs unclassified injection OFFICE/OUTPATIENT VISIT, EST OFFICE/OUTPATIENT VISIT, EST Elec Spinal Pump Refill Anlys, Phys Drugs unclassified injection Drug Screen Multiple Class Assay Of Alcohol (ethanol); Any Specimen Except Br Elec Spinal Pump Refill Anlys, Phys Ultrasonic Guidance for needle placement Drugs unclassified injection Drugs unclassified injection OFFICE/OUTPATIENT VISIT, EST ASSAY OF ETHANOL Drug Screen Multiple Class OFFICE/OUTPATIENT VISIT, EST Ultrasonic Guidance for needle placement Elec Spinal Pump Refill Anlys, Phys Drugs unclassified injection Drug Screen Multiple Class ASSAY OF ETHANOL MRI NECK SPINE W/O DYE MRI BRAIN W/O DYE Elec Spinal Pump Refill Anlys, Phys Ultrasonic Guidance for needle placement Drugs unclassified injection Drugs unclassified injection OFFICE/OUTPATIENT VISIT, EST ASSAY OF ETHANOL Drug Screen Multiple Class ASC Procedure BRAIN CANAL SHUNT PROCEDURE Spinal Pump Analysis w/ reprog 14 NONVASCULAR SHUNT, X-RAY Anesthesia No Charge Morphine sulfate injection OFFICE/OUTPATIENT VISIT, EST ASSAY OF ETHANOL Drug Screen Multiple Class SPIN/BRAIN PUMP REFIL & MAIN Spinal Pump Refill, Physician 3 Drugs unclassified injection Drugs unclassified injection OFFICE/OUTPATIENT VISIT, EST ASSAY OF ETHANOL Drug Screen Multiple Class Drug Screen Multiple Class ASSAY OF ETHANOL SPIN/BRAIN PUMP REFIL & MAIN Morphine sulfate injection OFFICE/OUTPATIENT VISIT, EST Drug Screen Multiple Class ASSAY OF ETHANOL Drug Screen Multiple Class ASSAY OF ETHANOL OFFICE/OUTPATIENT VISIT, EST Drug Screen Multiple Class ASSAY OF ETHANOL OFFICE/OUTPATIENT VISIT, EST POSTOP FOLLOW-UP VISIT Drug Screen Multiple Class ASSAY OF ETHANOL IMPLANT SPINE INFUSION PUMP IMPLANT NEUROELECTRODES ANESTH, HEAD/NECK/PTRUNK OFFICE/OUTPATIENT VISIT, EST Drug Screen Multiple Class ASSAY OF ETHANOL OFFICE/OUTPATIENT VISIT, EST INJECT SPINE W/CATH L/S (CD) Anesthesia No Charge INJECT SPINE W/CATH L/S (CD) Anesthesia No Charge INJECT SPINE W/CATH L/S (CD) ANESTH, HEAD/NECK/PTRUNK INJECT SPINE W/CATH L/S (CD) Anesthesia No Charge INJECT SPINE W/CATH L/S (CD) Anesthesia No Charge IMPLANT SPINAL CANAL CATH EPIDUROGRAPHY Anesthesia No Charge OFFICE/OUTPATIENT VISIT, EST Drug Screen Multiple Class ASSAY OF ETHANOL OFFICE/OUTPATIENT VISIT, EST Drug Screen Multiple Class ASSAY OF ETHANOL OFFICE/OUTPATIENT VISIT, EST Drug Screen Multiple Class ASSAY OF ETHANOL Advance Directives Directive Yes / No Effective Date File Name No Information Encounters Encounter Description Practice Location Reason(s) For Visit Diagnoses Date Provider Providers Copied on Encounter [facility], [address], [place], [place], [id number], [facility] No Information 4-201 5 Rob Gamboa. [address] [place] [address], [place], [address], . tel:[phone] OFFICE/OUTPA TIENT VISIT, EST [facility], [address], [place], [place], [id number], [facility] [place] [facility] Total Body Pain (chief complaint) CHRONIC PAIN SYNDROMEHeada cheEncounter for therapeutic drug monitoring Sep-2 5 [place] Cooper. [address] [place] [address], [place], [address], . tel:[phone] Referring Provider: Cooper South, [address] [place] [address] [address], [place], [address] . 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 [address], [place], [address], [place]. tel:[phone] Referring Provider: Shilpa Paige, [address], [place], [address] . tel:[phone] [facility], [address], [place], [place], [id number], [place] [facility] No Information May-0 4 Adriana Nelson. [address], [address], [place], [place], [address], [place]. tel:[phone] Referring Provider: Shilpa Paige, [address], [place], [address] . tel:[phone] OFFICE/OUTPA TIENT VISIT, EST [facility], [address], [place], [place], [address], [place] [facility] low back pain (chief complaint) cervicalgi a (chief complaint) headache (chief complaint) OverweightLum bagoRadiculit is, Thoracic or LumbarSacroil iitisHeadache 4 Adrianalloyd Nelson. [address], [address], [place], [place], [address], [place]. tel:[phone] Referring Provider: Shilpa Paige, [address], [place], [address] . tel:[phone] [facility], [address], [place], [place], [id number], [place] [facility] [place] Mechanical complication of nervous system device, implant, and graft [address], [address] [address], [place], [place], [address], [place]. tel:[phone] [facility], [address], [place], [place], [address], [place] tel:[phone] [facility] [place] No Information 4 Rosario [place], [place], [place]. OFFICE/OUTPA TIENT VISIT, EST [facility], [address], [place], [place], [address], [place] [facility] Low back pain (chief complaint) Headache (chief complaint) OverweightLum bagoRadiculit is, Thoracic or LumbarCHRONIC PAIN SYNDROMEThera peutic Drug MonitoringHea dache 4 Freda Gallagher. [address], [place], [place], [address], [place]. tel:[phone] Referring Provider: Shilpa Paige, [address], [place], [address] . tel:[phone] OFFICE/OUTPA TIENT VISIT, EST [facility], [address], [place], [place], [id number], [place] [facility] Low back pain (chief complaint) SacroiliitisR adiculitis, Thoracic or LumbarLumbar Sprain Or Strain Aug- 3 Adriana Nelson. [address], [address], [place], [place], [address], [place]. tel:[phone] Referring Provider: Shilpa Paige, [address], [place], [address] . tel:[phone] OFFICE/OUTPA TIENT VISIT, EST [facility], [address], [place], [place], [address], [place] [facility] Low back pain (chief complaint) Neck pain (chief complaint) Wrist Pain (chief complaint) Low back pain (chief complaint) Lumbar Sprain Or StrainRadicul itis, Thoracic or LumbarCHRONIC PAIN SYNDROMEOpioi d type dependence, continuous use May-2 3 Rell Anam. [address] [place] [address], [address], [place], [place], [facility], . tel:[phone] Referring Provider: Shilpa Paige, [address], [place], [address] . tel:[phone] [facility], [address], [place], [place], [address], [facility] [place] Low back pain (chief complaint) Lumbar Sprain Or StrainRadicul itis, Thoracic or LumbarSacroil iitisUDS ScreeningTher apeutic Drug Monitoring 3 Adriana Nelson. [address], [address], [place], [place], [address], [place]. tel:[phone] Referring Provider: Shilpa Paige, [address], [place], [address] . tel:[phone] OFFICE/OUTPA TIENT VISIT, EST [facility], [address], [place], [place], [address], [place] [facility] No Information 3 Adriana Nelson. [address], [address], [place], [place], [address], [place]. tel:[phone] Referring Provider: Shilpa Paige, [address], [place], [address] . tel:[phone] OFFICE/OUTPA TIENT VISIT, EST [facility], [address], [place], [place], [address], [facility] No Information 3 Rell Anam. [address] [place] [address], [address], [place], [facility], . tel:[phone] Referring Provider: Shilpa Paige, [address], [place], [address] . tel:[phone] [facility], [address], [place], [place], [address], [facility] [place] No Information 3 Rell Anam. [address] [place] [address], [address], [place], [facility], . tel:[phone] Referring Provider: Shilpa Paige, [address], [place], [address] . tel:[phone] [facility], [address], [place], [place], [address], [facility] [place] No Information 3 Rell Anam. [address] [place] [address], [address], [place], [facility], . tel:[phone] Referring Provider: Shilpa Paige, [address], [place], [address] . tel:[phone] [facility], [address], [place], [place], [address], tel:[phone] [facility] [place] No Information 3 Kessler Lolita. . OFFICE/OUTPA TIENT VISIT, EST [facility], [address], [place], [place], [address], [facility] No Information 3 Rell Anam. [address] [place] [address], [address], [place], [facility], . tel:[phone] Referring Provider: Shilpa Paige, [address], [place], [address] . tel:[phone] OFFICE/OUTPA TIENT VISIT, EST [facility], [address], [place], [place], [address], [place] [facility] [place] No Information 3-201 3 Adriana Nelson. [address], [place], [place], [address], [place]. tel:[phone] Referring Provider: Shilpa Paige, [address], [place], [address] . tel:[phone] [facility], [address], [place], [place], [address], [facility] [place] No Information 1 3 Adriana Nelson. [address], [address], [place], [place], [address], [place]. tel:[phone] Referring Provider: Shilpa Paige, [address], [place], [address] . tel:[phone] [facility], [address], [place], [place], [address], [place] tel:[phone] [facility] [place] No Information 3 Isaiah Redding. [address], [place], [place], [address], [place]. [facility], [address], [place], [address], [place] [facility] [place] No Information 0- 3 Christian Baker. [address], [place], [place], [address], [place]. tel:[phone] Referring Provider: Shilpa Paige, [address], [place], [address] . tel:[phone] [facility], [address], [place], [place], [address], [place] tel:[phone] [place] [address] [facility] [place] No Information 3 Ailyn Santos. [address] [place], [place], [facility], [place]. tel:[phone] [facility], [address], [place], [place], [address], [place] [facility] [place] No Information 3 Adriana Nelson. [address] [facility], [address], [place], [place], [address], [place]. tel:[phone] Referring Provider: Shilpa Paige, [address], [place], [address] . tel:[phone] [facility], [address], [place], [place], [address], tel:[phone] [place] [address] [facility] [place] No Information 3 Marlene Zheng [place], [place], [place]. [facility], [address], [place], [address], [facility] [place] No Information 3 Adriana Nelson. [facility], [address], [place], [place], [address], [place]. tel:[phone] Referring Provider: Shilpa Paige, [address], [place], [address] . tel:[phone] [facility], [address], [place], [place], [address], [place] tel:[phone] [place] [address] [facility] [place] No Information 3 Isaiah Redding. [address], [place], [place], [address], [place]. [facility], [address], [place], [address], [place] [facility] [place] No Information 3 Adriana Nelson. [address] [facility] [facility] [address], [place], [place], [address], . tel:[phone] Referring Provider: Shilpa Paige, [address], [place], [address] . tel:[phone] [facility], [address], [place], [place], [address], tel:[phone] [place] [address] [facility] [place] No Information 3 Marlene Zheng , [place], [place]. [facility], [address], [place], [place], [address], [facility] [place] No Information 3 Adriana Nelson. [address], [address], [place], [place], [address], . tel:[phone] Referring Provider: Shilpa Paige, [address], [place], [address] . tel:[phone] [facility], [address], [place], [place], [address], [place] tel:[phone] [place] [address] [facility] [place] No Information 3 Marlene Zheng , [place], [place]. OFFICE/OUTPA TIENT VISIT, EST [facility], [address], [place], [place], [address], [facility] [place] No Information 3 Adriana Nelson. [address], [address], [place], [place], [address], [place]. tel:[phone] Referring Provider: Shilpa Paige, [address], [place], [address] . tel:[phone] OFFICE/OUTPA TIENT VISIT, EST [facility], [address], [place], [place], [address], [facility] [place] No Information 3 Adriana Nelson. [address], [place], [place], [address], [place]. tel:[phone] Referring Provider: Shilpa Paige, [address], [place], [address] . tel:[phone] OFFICE/OUTPA TIENT VISIT, EST [facility], [address], [place], [place], [address], [place] [facility] No Information 3 Casper Torres. [address], [address], [place], [place], [address], [place]. tel:[phone] Referring Provider: Shilpa Paige, [address], [place], [address] . tel:[phone] Family History Family Member Type Diagnosis Age At Onset Sister Problem (finding) Alive and well Father Problem (finding) Mother Problem (finding) Payers Payer name Insurance type Covered libertarian ID Authoriza tion(s) [place] [id number] Social History Type Description Quantity Date Captured Comments Sex Male Smoking Status No Information Chief Complaint And Reason For Visit No Information Reason For Referral Reason For Referral No Information Plan Of Treatment Date Type Action Status Goal Dietary management education , guidance, and counseling completed Goal Dietary management education , guidance, and counseling completed History Of Present Illness Encounter Date Complaint History Of Prese nt Illness Total Body Pain The symptoms beg an 28 years ago. Aggravating factors include Lying/rest,weather,stairs,sitting,jumping,walking,lift ing,standing,rollingover in bed,changing position,and daily activities. Relieving factors include Movement,nothing,pain meds,lying down,changing positions,shower,sleep,music,video games,and talking. Pt describes pain as aching,piercing,tingling,burning,sharp,numbness,discom fort,shooting,dull,stabbing,and throbbing low back pain Severity level i s moderate-severe. The problem is fluctuating. It occurs persistently. Location of pain is lower back, gluteal area and legs. Pain is radiated to the back, left calf, right calf, left foot, right foot, left thigh and right thigh.The patient describes the pain as an ache, burning, deep, discomforting, numbness, sharp, shooting, stabbing and throbbing. Context: bending forward and sitting. Symptoms are aggravated by ascending stairs, daily activities, extension, flexion, lifting, sitting, sneezing, standing and twisting. Symptoms are relieved by heat, ice, pain meds/drugs and rest. cervicalgia The severity of the problem is moderate. The problem has not changed. The frequency of pain is constant. Location of pain is bilateral posterior neck and bilateral shoulder. There is radiation of pain to the bilateral hand, bilateral thumb, bilateral index finger and bilateral 5th finger. The patient describes the pain as sharp. Aggravating factors include exertion, flexion and rotation. Relieving factors include narcotic analgesics and rest. Associated symptoms include joint pain. Pertinent negatives include bladder incontinence, bladder retention, muscle spasm, rash and weight loss. low back pain Severity level i s moderate-severe. The problem is fluctuating. It occurs persistently. Location of pain is lower back, gluteal area and legs. Pain is radiated to the back, left calf, right calf, left foot, right foot, left thigh and right thigh.The patient describes the pain as an ache, burning, deep, discomforting, numbness, sharp, shooting, stabbing and throbbing. Context: bending forward and sitting. Symptoms are aggravated by ascending stairs, daily activities, extension, flexion, lifting, sitting, sneezing, standing and twisting. Symptoms are relieved by heat, ice, pain meds/drugs and rest. headache Severity: modera te-severe. It occurs intermittently. The problem is unchanged. Location is entire head, frontal left, frontal right, ocular left, ocular right, parietal left, parietal right, temporal left and temporal right. The patient describes it as blinding, sharp, stabbing and throbbing. Symptom is aggravated by head position. Relieving factors include heat and ice. Pertinent negatives include blurred vision, clear sinus drainage, dizziness, double vision, fever, hemianopsia left, hemianopsia right, loss of consciousness, memory impairment, nausea, neck stiffness, neurological symptoms, performance changes, personality change, phonophobia, photophobia, scintillations, scotoma, URI like symptoms, vertigo, vision loss left, vision loss right, visual aura and vomiting. Headache Severity: modera te-severe. It occurs constantly. The problem is worse. Location is entire head. There is radiation to neck and shoulders. The patient describes it as sharp. Timing of headache: upon awakening and at night time. Context: history of migraine. Symptom is aggravated by bright lights, head position, stress and weather. Relieving factors include analgesics, position, prescription drugs and relaxation. Associated symptoms include blurred vision, nausea and visual aura. Pertinent negatives include fever and vomiting. Additional information: pt c/o increased HARDY since having the pain pump inserted. He does have HX of migraine for 10 years. He is currently taking verapmil for the HARDY and states some relief. Low back pain Severity level i s moderate-severe. The problem is stable. It occurs persistently. Location of pain is lower back. Pain is radiated to the left calf, right calf, left foot, right foot, left thigh and right thigh. The patient describes the pain as an ache, burning and sharp. Symptoms are aggravated by changing positions, daily activities, lifting, sitting, standing, twisting and walking. Symptoms are relieved by pain meds/drugs and rest. Additional information: pt c/o since having the pain pump the surgical area will have intermittently swelling and then will have headaches. Low back pain Location of pain is lower back and gluteal area. Pain is radiated to the left calf, right calf, left foot, right foot, left thigh and right thigh. The patient describes the pain as an ache, burning, deep, discomforting and stabbing. Context: bending forward, bending over, pulling, pushing, sitting, sudden movement, twisting movement and walking. Symptoms are aggravated by extension, flexion, jumping, lifting and sneezing. The patient denies relieving factors. Low back pain Mr. Honey hardy d an intrathecal pain pump implanted in March of this year. The inciosions have hernando well. He is experencing pain and tenderness at the lumbar incision site. The pump is functioning well. He is being treated by Dr. Wright. Physical exam demonstrated tenderness at the lumbar ncision site. The incisions have healed well. No redness or swelling is noted. No discharge is noted. He will conitnue conservative suportive care. I lizbeth see him for follow up in 2 months if necessary. Wrist Pain Neck pain Onset: sudden. T he severity of the problem is moderate. The problem has worsened. The frequency of pain is constant. Location of pain is bilateral anterior neck. The patient describes the pain as sharp and stabbing. Aggravating factors include lifting and turning head. Relieving factors tried include pain pump. Associated symptoms include decreased mobility, difficulty sleeping and muscle spasm. Low back pain Onset: sudden wi thout injury. Severity level is severe. The problem is worsening. It occurs persistently. Pain is radiated to the left ankle, right ankle, left thigh and right thigh. The patient describes the pain as numbness, sharp, shooting and stabbing. Symptoms are aggravated by bending, coughing, daily activities, sitting, sneezing, standing and walking. Symptoms are relieved by lying down. Low back pain Location of pain is lower back and gluteal area. Pain is radiated to the left calf, right calf, left foot, right foot, left thigh and right thigh. The patient describes the pain as an ache, burning, deep, discomforting and stabbing. Context: bending forward, bending over, pulling, pushing, sitting, sudden movement, twisting movement and walking. Symptoms are aggravated by extension, flexion, jumping, lifting and sneezing. The patient denies relieving factors. Functional Status Date Functional Assessmen t No Information Instructions Date Instruction Additional Infor irma I refilled the patie nt's IT pump today.It was noted that he was released from [facility] before and I had a discussion with the patient regarding this.The patient was obviously very frustrated and was somewhat agressive in his speech and spoke in a raised voice. He did use several explatives and told me that I do not know what he has been through and that I don't care about him or his pain. I did request that he remain calm so that we could discuss his issues. He asked me to do the rigt thing and write a letter for him to be reinstated into the clinic system. I told him that I would look into the cause of his clinic discharge so that I could have all the information needed to make those kinds of decisions.The patient stated that I was taking all his options away and that within 6 months he would be turning to alcohol for treatment and that within a year he would consider other inappropriate solutions.He decided to then leave the office.At this time I feel that the patient has suffered a great deal because of his pain and that he is frustrated. However he certainly does have a tendency to act agressively. Related to CHRONIC PAIN SYNDROME The patient verbaliz ed an understanding of all instructions. The patient was advised to call the office if symptoms worsen or do not improve. The patient verbalized an understanding of the plan. The risks, benefits and side effects of treatment were discussed with the patient. Related to Sacroiliitis Dietary management e ducation, guidance, and counseling Related to Obesity, unspecified The patient verbaliz ed an understanding of all instructions. The patient was advised to call the office if symptoms worsen or do not improve. The patient verbalized an understanding of the plan. The risks, benefits and side effects of treatment were discussed with the patient. Related to Headache Dietary management e ducation, guidance, and counseling Related to Overweight Dietary counseling Related to Ov erweight Assessments Type Assessment Date No Information Patient Care Teams Name Effective Dates (start - stop) Status Members No Information
--- OUTSIDE RECORDS SUMMARY | 2024-02-18 07:40 | XMS_ITS ---
Author Organization [facility] [email or web address] Address [address] [place] [address] Care Team Providers Care Siderographer Name Role Phone JING LEÓN Primary Care Provider NAYE Lugo [phone] Encounters Encounter Location Date Provider Diagnosis [facility] [address] [place] [address] 02/18/2024 NAYE RAUSCH Plan Of Treatment No Information Progress Notes * Neo MÉNDEZ MDOB:1964 (59 yo M)Acc No.[id number]:02/18/2024 Progress Notes Patient: Marquita FONTANANeo CAMPBELL Provider: Royal Rausch M.D., Ph.D. :1965 A ge:58 Y S ex:Male Date:02/18/2024 [address] Pcp:JING LEÓN Subjective: * Chief Complaints: * * Medical History: Objective: * Vitals: Assessment: Plan: * Treatment: * Billing Information: * Visit Code: * Procedure Codes: * Electronic signature of NAYE RAUSCH MD PHD on 04/26/2025 at 02:35 PM EDT Sign off status: Pending * Provider: Royal Rausch M.D., Ph.D. Date: 0 02/18/2024 Generated for Printi ng/Faxing/eTransmitting on: 0 04/26/2025 02:35 PM EDT
--- NOTE | 2025-04-26 13:33 | XRR_ITS ---
PROCEDURE INFORMATION: Exam: XR Chest Exam date and time: 04/26/2025 1:38 PM Age: 59 years old Clinical indication: Shortness of breath; Additional info: SOB TECHNIQUE: Imaging protocol: Radiologic exam of the chest. Views: 1 view. COMPARISON: CT angio chest PE protcl [id number] 01/10/2025 5:35 PM FINDINGS: Lungs: Unremarkable. No consolidation. Pleural spaces: Unremarkable. No pleural effusion. No pneumothorax. Heart/Mediastinum: Unremarkable. No cardiomegaly. Bones/joints: Unremarkable. XR/XR chest 1V portable [id number] IMPRESSION: No acute findings.
--- OUTSIDE RECORDS SUMMARY | 2025-04-26 13:35 | XMS_ITS | Patient Health Record ---
Author Organization [facility] Address [address] [place] [address] Care Team Providers Care Bundle Packer Name Role Phone JING LEÓN Primary Care Provider Ravin nguyễn SHALOM NAYE Unavailable [phone] Allergies Allergen (clinical drug ingredient) Drug/Non Drug Allergy documented on EMR Reaction Allergy Type Onset Date Status aspirin Aspirin Unknown Drug Allergy Active Cymbalta Unknown Drug Allergy Active dexamethasone Dexamethasone Unknown Drug Allergy Active doxepin Doxepin HCl Unknown Drug Allergy Activ e acetaminophen Tylenol Unknown Drug Allergy Act bowen Vicodin Unknown Drug Allergy Active Medicinal cephalosporin and acting as antibacterial agent (FN) Cephalosporins Unknown Drug Allergy Active corticosteroid and/or corticosteroid derivative (FN) Corticosteroids Unknown Drug Allergy Active doxycycline Doxycycline Unknown Drug Allergy Act bowen Influenza H5N1 Split Adjuvanted Unknown Drug Allergy Active Macrolides and Ketolides Unknown Drug Allergy Active Penicillin Unknown Drug Allergy Active Medicinal quinolone and acting as antibacterial agent (FN) Quinolones Unknown Drug Allergy Active Product containing tetracycline structure (product) Tetracyclines & Related Unknown Drug Allergy Acti ve Reason For Referral No Information Medications Medication SIG (Take, Route, Frequency, Duration) Notes Start Date End Date Status Omeprazole 40 MG 1 capsule 30 minutes before morning meal Orally Once a day for 90 days Active AndroGel 25 MG/2.5GM (1%) 2 packets to s kin in the morning to shoulder, upper arms or abdomen Transdermal Once a day Active Atorvastatin Calcium 10 MG Oral for 90 Days Active Albuterol Sulfate HFA 108 (90 Base) MCG/ACT 2 puffs as needed Inhalation every 4-6 hrs as needed for 90 days Active EPINEPHrine 0.3 MG/0.3ML 0.3mg/0.3ml Inj ection use as needed for allergic reaction for 30 days 01/15/2023 Active hydrOXYzine HCl 25 MG 2 tablets Orally t hree times a day for 90 days 01/15/2023 Active Neema-D Allergy & Congestion 180-240 MG TAKE ONE TABLET BY MOUTH EVERY MORNING NEEDED FOR SINUS SYMPTOMS Oral for Not Available Active Social History Tobacco Use: Social History Observation Description Date Details (start date - stop date) Never Smoker NA - NA Tobacco Use/Smoking Question Answer Notes Tobacco use: nonsmoker Problems Problem Type SNOMED Code ICD Code Onset Dates Problem Status W/U Status Risk Notes Problem Allergic rhiniti s due to pollen (J30.1) Active confirmed Problem 41174328 Chronic rhinitis (J31.0) Active confirmed Problem 515692573 Cough variant asthma (J45.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) Active confirmed Problem 32191242 Penicillin allergy (Z88.0) Active confirmed Problem 065906197 Food allergy (Z91.018) Active confirmed Problem 299640675 Mild persistent asthma without complication (J45.30) Active confirmed Problem 799001215 Nasal polyps (J33.9) Active confirmed Problem 374094493 Chronic pruritus (L29.9) Active confirmed Problem 300716129 Idiopathic anaphylaxis, 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 Problem 87254254 Anaphylaxis, initial encounter (T78.2XXA) Active confirmed Plan Of Treatment Pending Test Test Name Order Date SPIROMETRY LOOP 11/21/2021 SPIROMETRY LOOP 02/11/2024 Total IgE (542) 11/21/2021 Insurance Providers Payer Name Payer Address Payer Phone Subscriber Number Group Number Insured Name Patient Relationship to Insured Coverage Start Date Coverage End Date [facility] OPTUM [address] [place] [address] [id number] Neo Méndez Self - patient is the insured Medical (General) History Medical History History ICD Code Asthma, unspecified, unspecified status 493.90 allergiy Surgical History Surgery Date(Month/Year) wisdom teeth 1983 rhinoplasty 2008
[2025-04-26 13:42] VITALS: BP 166/102; PULSE 85; TEMP 36.8; O2SAT 97
--- NOTE | 2025-04-26 13:46 | ECG_ITS ---
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 Measurements Intervals [place] Rate: 86 P: 16 KS: 170 QRS: -22 QRSD: 96 T: 30 QT: 369 QTc: 443 Interpretive Statements SINUS RHYTHM BORDERLINE LEFT AXIS DEVIATION [QRS AXIS < -20] INCOMPLETE RIGHT BUNDLE BRANCH BLOCK [90+ ms QRS DURATION, TERMINAL R IN V1/V2, 40+ ms S IN I/aVL/V4/V5/V6] Compared to ECG 01/10/2025 15:27:01 Incomplete right bundle-branch block now present Sinus tachycardia no longer present ST (T wave) deviation no longer present Electronically Signed On 04-28-2025 10:26:18 CDT by Johann Celeste M.D. [email or web address]
--- NOTE | 2025-04-26 14:20 | ED_ITS ---
HPI - Allergic Reaction 2 General: Chief complaint: Allergic Reaction Stated complaint: sob Time Seen by Provider: 04/26/25 14:12 Source: patient Mode of arrival: ambulatory Limitations: no limitations History of Present Illness: HPI narrative: 59-year-old male has a history of mast c ell activation syndrome has had multiple allergic reactions in the past. He states that he started having symptoms last night states he is having nausea vomiting along with pruritus. He is comfortable appearing here in no distress he has had some mild dyspnea of breath denies any worse improving factors. Denies any chest pain Associated symptoms: Deny abdominal pain, nausea or vomiting Related Data Home Medications ?Medication ?Instructions ?Recorded ?Confirmed cromolyn 20 mg/2 mL solution for 2 ml inhalation QID 0 01/10/25 01/10/25 nebulization famotidine 20 mg tablet 20 mg PO DAILY 01/10/2512/28 hydroxyzine pamoate 50 mg capsule 50 mg PO TID 5 01/10/25 Previous Rx's ?Medication ?Instructions ?Recorded albuterol sulfate 90 mcg/actuation 2 inh inhalation Q4 H PRN shortness 01/10/25 aerosol inhaler of breath or wheezing #18 gr ams tiotropium bromide 1.25 2 inh inhalation DAILY #4 gr ams 01/10/25 mcg/actuation mist for inhalation (Spiriva Respimat) Allergies Allergy/AdvReac Type Severity Reaction Status Date / Time acetaminophen (From Tylenol) Allergy ALGY-Anaphy Verified 04/26/25 13:51 laxis adhesive Allergy Unknown Verified 04/26/25 13:51 aspirin Allergy ALGY-Anaphy Verified 04/26/25 13:51 laxis Corticosteroids Allergy Unknown Verified 04/26/25 13:51 (Glucocorticoids) doxepin Allergy Unknown Verified 04/26/25 13:51 doxycycline Allergy ALGY-Rash Verified 04/26/25 13:51 duloxetine (From Cymbalta) Allergy Unknown Verified 04/26/25 13:51 hydrocodone (From Vicodin) Allergy Unknown Verified 04/26/25 13:51 influenza A (H1N1) virus Allergy Unknown Verified 04/26/25 13:51 vaccine m-camille-split 2008 (From influenza A (H1N1)) latex Allergy ALGY-Rash Verified 04/26/25 13:51 lidocaine Allergy ALGY-Anaphy Verified 04/26/25 13:51 laxis memantine (From Namenda) Allergy Unknown Verified 04/26/25 13:51 mirtazapine Allergy Unknown Verified 04/26/25 13:51 montelukast (From Singulair) Allergy Unknown Verified 04/26/25 13:51 mushroom Allergy ALGY-Anaphy Verified 04/26/25 13:51 laxis NSAIDS (Non-Steroidal Allergy ALGY-Anaphy Verified 04/26/25 13:51 Anti-Inflamma laxis onabotulinumtoxinA (From Allergy Unknown Verified 04/26/25 13:51 Botox) onion Allergy ALGY-Anaphy Verified 04/26/25 13:51 laxis oxycodone (From Percocet) Allergy Unknown Verified 04/26/25 13:51 Penicillins Allergy ALGY-Anaphy Verified 04/26/25 13:51 laxis pregabalin (From Lyrica) Allergy Unknown Verified 04/26/25 13:51 quetiapine (From Seroquel) Allergy ALGY-Anaphy Verified 04/26/25 13:51 laxis red (food color) Allergy Unknown Verified 04/26/25 13:51 shellfish derived Allergy ALGY-Anaphy Verified 04/26/25 13:51 laxis sulfanilamide Allergy Unknown Verified 04/26/25 13:51 tizanidine Allergy Unknown Verified 04/26/25 13:51 tomato Allergy ALGY-Anaphy Verified 04/26/25 13:51 laxis topiramate (From Topamax) Allergy Unknown Verified 04/26/25 13:51 zonisamide Allergy Unknown Verified 04/26/25 13:51 Review of Systems 2 Const: Denies: fever(s), chills, body aches or change in appetite ENMT: Denies: throat pain or dental pain Card: Denies: chest pain Resp: Reports: dyspnea GI: Denies: abdominal pain, nausea, vomiting or diarrhea Musc: Denies: neck pain or back pain Skin/Breast: Reports: pruritus; Denies: rash Neuro: Denies: headache(s) Physical Exam 2 Const: COMMON NORMALS: no acute distress, patient oriented x3 and healthy appearing HENMT: COMMON NORMALS: normocephalic and atraumatic HEAD & SCALP: n ormocephalic and atraumatic Eye: COMMON NORMALS: conjunctivae normal CONJUNCTIVA: Yes conjunctivae normal Neck/C-Spine: COMMON NORMALS: full ROM and supple Chest: COMMONS NORMALS: normal inspection of the chest Resp: COMMON NORMALS: normal respiratory effort, No retractions, No use of accessory muscles and clear to auscultation bilaterally AUSCULTATION: clear to auscultation bilaterally Cardio: COMMON NORMALS: regular rate, regular rhythm and No murmurs present (Cardio) RATE: regular rate RHYTHM: regular rhythm Extremity: COMMON NORMALS: normal to inspection and full ROM Neuro: COMMON NORMALS: patient oriented x3, moves all extremities and no focal motor deficits Psych: COMMON NORMALS: mental status grossly normal, Normal thought process present and cooperative THOUGHT PROCESS: Normal thought process present Skin: COMMON NORMALS: no rashes or lesions noted and no wounds GENERAL SKIN EXAM: no rashes or lesions noted Course 2 Vital Signs: Vital signs: Vital Signs Temperature 98.3 F 04/26/25 13:42 Pulse Rate 85 04/26/25 13:42 Blood Pressure 166/102 04/26/25 13:42 Pulse Oximetry 97 04/26/25 13:42 Oxygen Delivery Me thod Room Air 04/26/25 13:42 MDM - Allergic Reaction Medical Decision Making Patient presents here with likely allergic reaction he feels much improved here blood work here is normal he is in no distress he stable for discharge follow-up PCP return if worsening. Medical Records I reviewed the patient's medical records. Lab Data I reviewed the patient's lab results. 04/26/25 14:15 04/26/25 14:15 Laboratory Results WBC 9.63 10^3/uL (3.29-11.43) 04/26/25 14:15 RBC 5.20 10^6/uL (3.85-5.65) 04/26/25 14:15 Hgb 15.40 g/dL (11.27-16.99) 04/26/25 14:15 Hct 45.5 % (37-53) 04/26/25 14:15 MCV 87.5 fl (82-101) 04/26/25 14:15 MCH 29.6 pg (27-33) 04/26/25 14:15 MCHC 33.8 g/dL (30-55) 04/26/25 14:15 RDW 13.3 % (12.1-15.1) 04/26/25 14:15 Plt Count 341 10^3/cmm (157-399) 04/26/25 14:15 MPV 9.8 fL (7.4-10.4) 04/26/25 14:15 Neut % (Auto) 52.5 % 04/26/25 14:15 Lymph % (Auto) 28.2 % 04/26/25 14:15 [place] % (Auto) 12.3 % 04/26/25 14:15 Eos % (Auto) 5.5 % 04/26/25 14:15 Baso % (Auto) 1.1 % 04/26/25 14:15 Neut # (Auto) 5.05 10^3/uL (1.8-7.7) 04/26/25 14:15 Lymph # (Auto) 2.7 10^3/uL (0.8-4.8) 04/26/25 14:15 [place] # (Auto) 1.2 10^3/uL (0.2-0.9) H 04/26/25 14:15 Eos # (Auto) 0.5 10^3/uL (0.0-0.8) 04/26/25 14:15 Baso # (Auto) 0.1 10^3/uL (0.0-0.1) 04/26/25 14:15 Nucleated RBC % (auto) 0 % 04/26/25 14:15 Nucleated RBCs # 0.0 /100WBC 04/26/25 14:15 Sodium 141 mmol/L (136-145) 04/26/25 14:15 Potassium 3.7 mmol/L (3.5-5.1) 04/26/25 14:15 Chloride 102 mmol/L (98-107) 04/26/25 14:15 Carbon Dioxide 25 mmol/L (22-29) 04/26/25 14:15 Anion Gap 17.7 (5-19) 04/26/25 14:15 BUN 9 mg/dL (6-20) 04/26/25 14:15 Creatinine 1.2 mg/dL (0.7-1.2) 04/26/25 14:15 GFR Calculation 62.0 mL/min (90-130) L 04/26/25 14:15 Glucose 77 mg/dL (65-115) 04/26/25 14:15 Calculated Osmolality 289 mOsm/kg (285-295) 04/26/25 14:15 Calcium 9.3 mg/dL (8.5-10.5) 04/26/25 14:15 Total Bilirubin 0.7 mg/dL (0.15-1.2) 04/26/25 14:15 AST 31 U/L (0-40) 04/26/25 14:15 ALT 24 U/L (0-41) 04/26/25 14:15 Alkaline Phosphatase 98 U/L (40-130) 04/26/25 14:15 NT-Pro-B Natriuret Pep 99 pg/mL (0-125) 04/26/25 14:15 Total Protein 7.2 g/dL (6.6-8.7) 04/26/25 14:15 Albumin 4.4 g/dL (3.5-5.2) 04/26/25 14:15 Globulin 2.8 g/dL (1.3-4.6) 04/26/25 14:15 All radiology interpretation(s) finalized by discharge EKG Data EKG 1: I personally reviewed and interpreted this EKG as follows: EKG interpretation date: 04/26/25 EKG interpretation time: 13:46 Interpretation: nsr hr [address] or t wave abnormalities qrs 96 qtc 412 Discharge Plan Discharge Patient Disposition: Home Clinical Impression: Allergic reaction Condition: Stable Prescriptions: No Action cromolyn 20 mg/2 mL Solution For Nebulization 2 ml INHALATION QID hydroxyzine pamoate 50 mg Capsule 50 mg PO TID famotidine 20 mg Tablet 20 mg PO DAILY Spiriva Respimat 1.25 mcg/actuation mist 2 inh inhalation DAILY Qty: 4 0RF albuterol sulfate 90 mcg/actuation HFA aerosol inhaler 2 inh INHALATION Q4H PRN (Reason: shortness of breath or wheezing) Qty: 18 0RF Discharge Orders: Discharge ED (Routine); Ordered 04/26/25 Ordered By: Nino Rasheed Discharge Diet: Advance as tolerated Discharge Activity: Resume usual activity Patient Instructions: General Allergic Reaction (ED) Print Language: Moroccan Coding Level of Care Code ED Hardware Engineering Manager for Chg Kishan
[2025-04-26 14:30] LABS: Hematocrit 45.5 % (37-53); Hemoglobin 15.40 g/dL (11.27-16.99); Mean Corpuscular HGB Conc 33.8 g/dL (30-55); Mean Corpuscular Hemoglobin 29.6 pg (27-33); Mean Corpuscular Volume 87.5 fl (82-101); Nucleated Red Blood Cells % 0 %; Platelet Count 341 10^3/cmm (157-399); Red Blood Count 5.20 10^6/uL (3.85-5.65); White Blood Count 9.63 10^3/uL (3.29-11.43)
[2025-04-26] MEDS: diphenhydrAMINE 50 mg/mL SDV 1mL IVP (14:57)
[2025-04-26] MEDS: methylPREDNISolone sod succ 125 mg/2 mL INJ IVP (14:59)
[2025-04-26 15:01] LABS: Alanine Aminotransferase 24 U/L (0-41); Albumin Level 4.4 g/dL (3.5-5.2); Alkaline Phosphatase 98 U/L (40-130); Aspartate Amino Transferase 31 U/L (0-40); Blood Urea Nitrogen 9 mg/dL (6-20); Calcium 9.3 mg/dL (8.5-10.5); Carbon Dioxide 25 mmol/L (22-29); Chloride 102 mmol/L (98-107); Creatinine Clr Calc Pharmacy 72.9015; Globulin 2.8 g/dL (1.3-4.6); Glucose 77 mg/dL (65-115); NT Pro B Type Natriuretic Pept 99 pg/mL (0-125); Osmolality Calculated 289 mOsm/kg (285-295); Sodium 141 mmol/L (136-145); Total Protein 7.2 g/dL (6.6-8.7)
[2025-04-26 15:02] LABS: Anion Gap 17.7 (5-19); Potassium 3.7 mmol/L (3.5-5.1)
[2025-04-26] MEDS: metoclopramide 5 mg/mL SDV 2 mL 10 MG IVP (15:07)
[2025-04-26 15:50] VITALS: BP 164/96; PULSE 72; RESP 16; O2SAT 92
== END 2025-04-26 15:49 | disposition home or self-care (01) ==
PROVIDERS: Emergency Provider Emergency Medicine
DX: T78.40XA Allergy, unspecified, initial encounter (principal); L29.9 Pruritus, unspecified; X58.XXXA Exposure to other specified factors, initial encounter
CPT/HCPCS: 36415; 71045; 80053; 83880; 85025; 93005; 96374; 96375; 99285; J1200; J2765; J2919; J3490

== ENCOUNTER 2025-04-29 06:30 | Outpatient (RCR) | payer OTHER, SELFPAY | END 2025-05-29 23:59 | disposition home or self-care (01) | LOC: GPT 06:30 | PROVIDERS: Visit Provider Emergency Medicine | DX: M25.511 Pain in right shoulder (principal) | CPT/HCPCS: 97110; 97112; 97140; 97162 ==

== ENCOUNTER 2025-05-15 16:21 | Emergency (ER) | payer OTHER, MEDICARE, SELFPAY ==
--- OUTSIDE RECORDS SUMMARY | 2024-02-18 07:40 | XMS_ITS ---
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 :1965 A ge:58 Y S ex:Male Date:02/18/2024 [facility] Pcp:JING LEÓN Subjective: * Chief Complaints: * * Medical History: Objective: * Vitals: Assessment: Plan: * Treatment: * Billing Information: * Visit Code: * Procedure Codes: * Electronic signature of NAYE RAUSCH MD PHD on 05/15/2025 at 05:27 PM EDT Sign off status: Pending * Provider: Royal Rausch M.D., Ph.D. Date: 0 02/18/2024 Generated for Printi ng/Faxing/eTransmitting on: 0 05/15/2025 05:27 PM EDT
[2025-05-15 16:26] VITALS: BP 158/80; PULSE 78; RESP 16; O2SAT 97
--- OUTSIDE RECORDS SUMMARY | 2025-05-15 16:28 | XMS_ITS | Patient Health Record ---
Author Organization [facility] [employer] [facility] Address [address] [place] [address] Care Team Providers Care Purse Seining Hand Name Role Phone JING LEÓN Primary Care Provider Ravin nguyễn SHALOM NYAE Unavailable [phone] Allergies Allergen (clinical drug ingredient) Drug/Non Drug Allergy documented on EMR Reaction Allergy Type Onset Date Status aspirin Aspirin Unknown Drug Allergy Active duloxetine Cymbalta Unknown Drug Allergy Active dexamethasone Dexamethasone [...] minutes before morning meal Orally Once a day; Duration: 90 days Active AndroGel 25 MG/2.5GM (1%) 2 packets to s kin in the morning to shoulder, upper arms or abdomen Transdermal Once a day Active Atorvastatin Calcium 10 MG Oral; Duration: 90 Days Active Albuterol Sulfate HFA 108 (90 Base) MCG/ACT 2 puffs as needed Inhalation every 4-6 hrs as needed; Duration: 90 days Active EPINEPHrine 0.3 MG/0.3ML 0.3mg/0.3ml Inj ection use as needed for allergic reaction; Duration: 30 days 01/15/2023 Active hydrOXYzine HCl 25 MG 2 tablets Orally t hree times a day; Duration: 90 days 01/15/2023 Active Neema-D Allergy & Congestion 180-240 MG TAKE ONE TABLET BY MOUTH EVERY MORNING NEEDED FOR SINUS SYMPTOMS Oral; Duration: Not Available Active Social History Tobacco Use: Social History Observation Description Date Details (start date - stop date) Never Smoker NA - NA Tobacco Use/Smoking Question Answer Notes Tobacco use: nonsmoker Problems Problem Type SNOMED Code ICD Code Onset Dates Problem Status W/U Status Risk Notes Problem Allergic rhinitis caused by pollen (disorder) (58607892) Allergic rhinitis due to pollen (J30.1) Active confirmed Problem Chronic rhinitis (34195313) Chronic rhinitis (J31.0) Active confirmed Problem Cough variant asthma (885155339) Cough variant asthma (J45.991) Active confirmed Problem Penicillin allergy (13634985) Penicillin allergy (Z88.0) Active confirmed Problem Food allergy (959387286) Food allergy (Z91.018) Active confirmed Problem Uncomplicated mild persistent asthma (038232973) Mild persistent asthma without complication (J45.30) Active confirmed Problem Multiple polyps of nasal cavity and/or nasal sinus (disorder) (9681524814) Nasal polyps (J33.9) Active confirmed Problem Pruritic disorders (151446172) Chronic pruritus (L29.9) Active confirmed 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, 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 Problem Anaphylaxis (45558367) Anaphylaxis, initial encounter (T78.2XXA) Active confirmed Plan Of Treatment Pending Test Test Name Order Date SPIROMETRY LOOP 11/21/2021 SPIROMETRY LOOP 02/11/2024 Total IgE (542) 11/21/2021 Insurance Providers Payer Name Payer Address Payer Phone Subscriber Number Group Number Insured Name Patient Relationship to Insured Coverage Start Date Coverage End Date [facility] [address] [place] [id number] Neo Méndez Self - patient is the insured Medical (General) History Medical History History ICD Code Asthma, unspecified, unspecified status 493.90 allergiy Surgical History Surgery Date(Month/Year) wisdom teeth 1983 rhinoplasty 2008
--- NOTE | 2025-05-15 16:40 | XRR_ITS ---
PROCEDURE INFORMATION: Exam: XR Chest Exam date and time: 05/15/2025 4:59 PM Age: 59 years old Clinical indication: Shortness of breath; SOB TECHNIQUE: Imaging protocol: Radiologic exam of the chest. Views: 1 view. COMPARISON: CR XR chest 1V portable [id number] 04/26/2025 1:38 PM FINDINGS: Lungs: Unremarkable. No consolidation. Pleural spaces: Unremarkable. No pleural effusion. No pneumothorax. Heart/Mediastinum: Unremarkable. No cardiomegaly. Bones/joints: Unremarkable. XR/XR chest 1V portable [id number] IMPRESSION: No acute findings.
--- NOTE | 2025-05-15 16:49 | W.ED.SKABFB ---
HPI - Skin/Abscess/Foreign Bdy General: Chief complaint: Skin/Abscess/Foreign Body Stated complaint: dizzy, rash, lightheaded sob Time Seen by Provider: 05/15/25 16:35 Source: patient Mode of arrival: ambulatory Limitations: no limitations History of Present Illness: 59-year-old male history of allergic reaction the past for mast cell. States that he has had some dyspnea rash itchiness has gotten worse over the last 2 days. He denies any chest pain he is resting comfortably currently. Denies any worse improved factors. Associated symptoms: Deny chills, fever(s), nausea or vomiting Related Data Home Medications ?Medication ?Instructions ?Recorded ?Confirmed cromolyn 20 mg/2 mL solution for 2 ml inhalation QID 01/10/25 01/10/25 nebulization famotidine 20 mg tablet 20 mg PO DAILY 01/10/25 01/10/25 hydroxyzine pamoate 50 mg capsule 50 mg PO TID 01/10/25 01/10/25 Previous Rx's ?Medication ?Instructions ?Recorded albuterol sulfate 90 mcg/actuation 2 inh inhalation Q4H PRN shortness 01/10/25 aerosol inhaler of breath or wheezing #18 grams tiotropium bromide 1.25 2 inh inhalation DAILY #4 grams 01/10/25 mcg/actuation mist for inhalation (Spiriva Respimat) Allergies Allergy/AdvReac Type Severity Reaction Status Date / Time acetaminophen (From Tylenol) Allergy ALGY-Anaphy Verified 04/26/25 13:51 laxis adhesive Allergy Unknown Verified 04/26/25 13:51 aspirin Allergy ALGY-Anaphy Verified 04/26/25 13:51 laxis Corticosteroids Allergy Unknown Verified 04/26/25 13:51 (Glucocorticoids) doxepin Allergy Unknown Verified 04/26/25 13:51 doxycycline Allergy ALGY-Rash Verified 04/26/25 13:51 duloxetine (From Cymbalta) Allergy Unknown Verified 04/26/25 13:51 hydrocodone (From Vicodin) Allergy Unknown Verified 04/26/25 13:51 influenza A (H1N1) virus Allergy Unknown Verified 04/26/25 13:51 vaccine [id number] (From influenza A (H1N1)) latex Allergy ALGY-Rash Verified 04/26/25 13:51 lidocaine Allergy ALGY-Anaphy Verified 04/26/25 13:51 laxis memantine (From Namenda) Allergy Unknown Verified 04/26/25 13:51 mirtazapine Allergy Unknown Verified 04/26/25 13:51 montelukast (From Singulair) Allergy Unknown Verified 04/26/25 13:51 mushroom Allergy ALGY-Anaphy Verified 04/26/25 13:51 laxis NSAIDS (Non-Steroidal Allergy ALGY-Anaphy Verified 04/26/25 13:51 Anti-Inflamma laxis onabotulinumtoxinA (From Allergy Unknown Verified 04/26/25 13:51 Botox) onion Allergy ALGY-Anaphy Verified 04/26/25 13:51 laxis oxycodone (From Percocet) Allergy Unknown Verified 04/26/25 13:51 Penicillins Allergy ALGY-Anaphy Verified 04/26/25 13:51 laxis pregabalin (From Lyrica) Allergy Unknown Verified 04/26/25 13:51 quetiapine (From Seroquel) Allergy ALGY-Anaphy Verified 04/26/25 13:51 laxis red (food color) Allergy Unknown Verified 04/26/25 13:51 shellfish derived Allergy ALGY-Anaphy Verified 04/26/25 13:51 laxis sulfanilamide Allergy Unknown Verified 04/26/25 13:51 tizanidine Allergy Unknown Verified 04/26/25 13:51 tomato Allergy ALGY-Anaphy Verified 04/26/25 13:51 laxis topiramate (From Topamax) Allergy Unknown Verified 04/26/25 13:51 zonisamide Allergy Unknown Verified 04/26/25 13:51 Review of Systems Const: Denies: fever(s), chills, body aches or change in appetite ENMT: Denies: throat pain or dental pain Card: Denies: chest pain Resp: Reports: dyspnea GI: Denies: abdominal pain, nausea, vomiting or diarrhea Musc: Denies: neck pain or back pain Skin/Breast: Reports: rash and pruritus Neuro: Denies: headache(s) Physical Exam Const: COMMON NORMALS: no acute distress, patient oriented x3 and healthy appearing HENMT: COMMON NORMALS: normocephalic and atraumatic HEAD & SCALP: normocephalic and atraumatic Neck/C-Spine: COMMON NORMALS: full ROM and supple Chest: COMMONS NORMALS: normal inspection of the chest and normal palpation of entire chest wall Resp: COMMON NORMALS: normal respiratory effort, No retractions, No use of accessory muscles and clear to auscultation bilaterally AUSCULTATION: clear to auscultation bilaterally Cardio: COMMON NORMALS: regular rate, regular rhythm and No murmurs present (Cardio) RATE: regular rate RHYTHM: regular rhythm Extremity: COMMON NORMALS: normal to inspection and full ROM Neuro: COMMON NORMALS: patient oriented x3, moves all extremities and no focal motor deficits Psych: COMMON NORMALS: mental status grossly normal, Normal thought process present and cooperative THOUGHT PROCESS: Normal thought process present Skin: COMMON NORMALS: no wounds NARRATIVE SKIN EXAM: Urticarial rash to bilateral arms Course Vital Signs: Vital signs: Vital Signs Pulse Rate 78 05/15/25 16:26 Respiratory Rate 16 05/15/25 16:26 Blood Pressure 158/80 05/15/25 16:26 Pulse Oximetry 97 05/15/25 16:26 Oxygen Delivery Me thod Room Air 05/15/25 16:26 MDM - Skin/Abscess/Foreign Bdy Medicial Decision Making Patient presents here with rash dyspnea likely allergic reaction he feels improved here he is well-appearing here no distress he stable for discharge follow-up PCP return if worsening. Medical Records I reviewed the patient's medical records. Lab Data I reviewed the patient's lab results. 05/15/25 16:54 05/15/25 16:54 Laboratory Results WBC 8.21 10^3/uL (3.29-11.43) 05/15/25 16:54 RBC 5.38 10^6/uL (3.85-5.65) 05/15/25 16:54 Hgb 15.90 g/dL (11.27-16.99) 05/15/25 16:54 Hct 45.7 % (37-53) 05/15/25 16:54 MCV 84.9 fl (82-101) 05/15/25 16:54 MCH 29.6 pg (27-33) 05/15/25 16:54 MCHC 34.8 g/dL (30-55) 05/15/25 16:54 RDW 13.0 % (12.1-15.1) 05/15/25 16:54 Plt Count 338 10^3/cmm (157-399) 05/15/25 16:54 MPV 9.5 fL (7.4-10.4) 05/15/25 16:54 Neut % (Auto) 51.5 % 05/15/25 16:54 Lymph % (Auto) 29.8 % 05/15/25 16:54 [place] % (Auto) 11.8 % 05/15/25 16:54 Eos % (Auto) 5.5 % 05/15/25 16:54 Baso % (Auto) 1.2 % 05/15/25 16:54 Neut # (Auto) 4.22 10^3/uL (1.8-7.7) 05/15/25 16:54 Lymph # (Auto) 2.5 10^3/uL (0.8-4.8) 05/15/25 16:54 [place] # (Auto) 1.0 10^3/uL (0.2-0.9) H 05/15/25 16:54 Eos # (Auto) 0.5 10^3/uL (0.0-0.8) 05/15/25 16:54 Baso # (Auto) 0.1 10^3/uL (0.0-0.1) 05/15/25 16:54 Nucleated RBC % (auto) 0 % 05/15/25 16:54 Nucleated RBCs # 0.0 /100WBC 05/15/25 16:54 Sodium 141 mmol/L (136-145) 05/15/25 16:54 Potassium 3.6 mmol/L (3.5-5.1) 05/15/25 16:54 Chloride 106 mmol/L (98-107) 05/15/25 16:54 Carbon Dioxide 25 mmol/L (22-29) 05/15/25 16:54 Anion Gap 13.6 (5-19) 05/15/25 16:54 BUN 10 mg/dL (6-20) 05/15/25 16:54 Creatinine 1.2 mg/dL (0.7-1.2) 05/15/25 16:54 GFR Calculation 62.0 mL/min (90-130) L 05/15/25 16:54 Glucose 81 mg/dL (65-115) 05/15/25 16:54 Calculated Osmolality 290 mOsm/kg (285-295) 05/15/25 16:54 Calcium 9.3 mg/dL (8.5-10.5) 05/15/25 16:54 Total Bilirubin 0.8 mg/dL (0.15-1.2) 05/15/25 16:54 AST 26 U/L (0-40) 05/15/25 16:54 ALT 24 U/L (0-41) 05/15/25 16:54 Alkaline Phosphatase 97 U/L (40-130) 05/15/25 16:54 Total Protein 7.3 g/dL (6.6-8.7) 05/15/25 16:54 Albumin 4.5 g/dL (3.5-5.2) 05/15/25 16:54 Globulin 2.8 g/dL (1.3-4.6) 05/15/25 16:54 All radiology interpretation(s) finalized by discharge Discharge Plan Discharge Patient Disposition: Home Clinical Impression: Allergic reaction Condition: Stable Prescriptions: No Action cromolyn 20 mg/2 mL Solution For Nebulization 2 ml INHALATION QID hydroxyzine pamoate 50 mg Capsule 50 mg PO TID famotidine 20 mg Tablet 20 mg PO DAILY Spiriva Respimat 1.25 mcg/actuation mist 2 inh inhalation DAILY Qty: 4 0RF albuterol sulfate 90 mcg/actuation HFA aerosol inhaler 2 inh INHALATION Q4H PRN (Reason: shortness of breath or wheezing) Qty: 18 0RF Discharge Orders: Discharge ED (Routine); Ordered 05/15/25 Ordered By: Nino Rasheed Discharge Diet: Advance as tolerated Discharge Activity: Resume usual activity Patient Instructions: Allergic Reaction Print Language: Jordanian Coding Level of Care Code ED Customs Consultant for Pierre Holley
[2025-05-15 17:01] LABS: Hematocrit 45.7 % (37-53); Hemoglobin 15.90 g/dL (11.27-16.99); Mean Corpuscular HGB Conc 34.8 g/dL (30-55); Mean Corpuscular Hemoglobin 29.6 pg (27-33); Mean Corpuscular Volume 84.9 fl (82-101); Nucleated Red Blood Cells % 0 %; Platelet Count 338 10^3/cmm (157-399); Red Blood Count 5.38 10^6/uL (3.85-5.65); White Blood Count 8.21 10^3/uL (3.29-11.43)
[2025-05-15] MEDS: methylPREDNISolone sod succ 125 mg/2 mL INJ IVP (17:17)
[2025-05-15 17:21] LABS: Alanine Aminotransferase 24 U/L (0-41); Albumin Level 4.5 g/dL (3.5-5.2); Alkaline Phosphatase 97 U/L (40-130); Anion Gap 13.6 (5-19); Aspartate Amino Transferase 26 U/L (0-40); Blood Urea Nitrogen 10 mg/dL (6-20); Calcium 9.3 mg/dL (8.5-10.5); Carbon Dioxide 25 mmol/L (22-29); Chloride 106 mmol/L (98-107); Creatinine Clr Calc Pharmacy 72.9015; Globulin 2.8 g/dL (1.3-4.6); Glucose 81 mg/dL (65-115); Osmolality Calculated 290 mOsm/kg (285-295); Potassium 3.6 mmol/L (3.5-5.1); Sodium 141 mmol/L (136-145); Total Protein 7.3 g/dL (6.6-8.7)
[2025-05-15] MEDS: diphenhydrAMINE 50 mg/mL SDV 1mL IVP (17:24)
[2025-05-15 18:03] VITALS: BP 168/106; PULSE 86; RESP 17; O2SAT 96
== END 2025-05-15 18:03 | disposition home or self-care (01) ==
PROVIDERS: Emergency Provider Emergency Medicine
DX: T78.40XA Allergy, unspecified, initial encounter (principal); X58.XXXA Exposure to other specified factors, initial encounter
CPT/HCPCS: 71045; 80053; 85025; 96374; 96375; 99284; J1200; J2919; J3490

== ENCOUNTER 2025-05-30 05:00 | Outpatient (RCR) | payer OTHER, SELFPAY | END 2025-06-28 23:59 | disposition home or self-care (01) | LOC: GPT 05:00 | PROVIDERS: Visit Provider Emergency Medicine | DX: M25.511 Pain in right shoulder (principal) | CPT/HCPCS: 97110; 97112; 97140 ==

== ENCOUNTER 2025-07-08 14:16 | Outpatient (RCR) | payer OTHER, SELFPAY | END 2025-07-29 23:59 | disposition home or self-care (01) | LOC: GPT 14:16 | PROVIDERS: Visit Provider Emergency Medicine | DX: M25.511 Pain in right shoulder (principal) | CPT/HCPCS: 97110; 97112; 97140 ==

== ENCOUNTER 2025-07-25 12:01 | Outpatient (RCR) | payer OTHER, SELFPAY | END 2025-07-29 23:59 | disposition home or self-care (01) | LOC: GPT 12:01 | PROVIDERS: Visit Provider Internal Medicine | DX: M54.2 Cervicalgia (principal) | CPT/HCPCS: 97140; 97162 ==

== ENCOUNTER 2025-07-30 05:00 | Outpatient (RCR) | payer OTHER, SELFPAY | END 2025-08-28 23:59 | disposition home or self-care (01) | LOC: GPT 05:00 | PROVIDERS: PCP Internal Medicine; Visit Provider Internal Medicine | DX: M54.2 Cervicalgia (principal) | CPT/HCPCS: 97112; 97140 ==

== ENCOUNTER 2025-08-01 20:23 | Outpatient (CLI) | payer OTHER, SELFPAY | END 2025-08-01 20:24 | disposition home or self-care (01) | LOC: SLEEP 20:24 | PROVIDERS: PCP Internal Medicine; Referring Provider Internal Medicine; Visit Provider Internal Medicine Pulmonary Disease | DX: G47.30 Sleep apnea, unspecified (principal); G47.36 Sleep related hypoventilation in conditions classified elsewhere | CPT/HCPCS: 95810 ==

== ENCOUNTER 2025-08-23 11:17 | Outpatient (RCR) | payer OTHER, SELFPAY | END 2025-08-28 23:59 | disposition home or self-care (01) | LOC: GPT 11:17 | PROVIDERS: PCP Internal Medicine; Visit Provider Emergency Medicine | DX: M25.511 Pain in right shoulder (principal) | CPT/HCPCS: 97110; 97112 ==

== ENCOUNTER 2025-08-29 05:00 | Outpatient (RCR) | payer OTHER, SELFPAY | END 2025-09-28 23:59 | disposition home or self-care (01) | LOC: GPT 05:00 | PROVIDERS: PCP Internal Medicine; Visit Provider Internal Medicine | DX: M54.2 Cervicalgia (principal) | CPT/HCPCS: 97110; 97112; 97140 ==

== ENCOUNTER 2025-09-13 16:19 | Outpatient (CLI) | payer MEDICARE, SELFPAY ==
--- NOTE | 2025-09-13 16:40 | XRR_ITS ---
PROCEDURE INFORMATION: Exam: XR Sacrum and Coccyx, 2 or More Views Exam date and time: 09/13/2025 4:50 PM Age: 60 years old Clinical indication: Lumbago; With sciatica; Left; Prior surgery; Surgery date: 6+ months; Surgery type: Spinal pain pump; Additional info: M54.42 - lumbago with sciatica, left side TECHNIQUE: Imaging protocol: XR of the sacrum and coccyx, 2 or more views. COMPARISON: CR XR lumbar spine 2-3V* [id number] 09/13/2025 4:50 PM FINDINGS: Bones/joints: No acute osseous abnormality. Soft tissues: Normal. XR/XR sacrum coccyx min 2V [id number] IMPRESSION: No acute findings.
--- NOTE | 2025-09-13 16:40 | XRR_ITS ---
PROCEDURE INFORMATION: Exam: XR Lumbosacral Spine Exam date and time: 09/13/2025 4:50 PM Age: 60 years old Clinical indication: Lumbago with sciatica; Left; Prior surgery; Surgery date: 6+ months; Surgery type: Spinal pain pump; Additional info: M54.42 - lumbago with sciatica, left side TECHNIQUE: Imaging protocol: Radiologic exam of the lumbosacral spine. Views: 2 or 3 views. COMPARISON: CR XR sacrum coccyx min 2V [id number] 09/13/2025 4:50 PM FINDINGS: Bones/joints: No acute osseous abnormality. Soft tissues: Unremarkable. XR/XR lumbar spine 2-3V* [id number] IMPRESSION: No acute findings.
== END 2025-09-13 16:20 | disposition home or self-care (01) ==
LOC: RAD 16:22
PROVIDERS: PCP Family Medicine; Visit Provider Family Medicine
DX: M54.42 Lumbago with sciatica, left side (principal); M54.41 Lumbago with sciatica, right side; G89.29 Other chronic pain; K59.00 Constipation, unspecified; R29.898 Other symptoms and signs involving the musculoskeletal system; R20.0 Anesthesia of skin
CPT/HCPCS: 72100; 72220